=== PATIENT | female | born 1980 ===

== ENCOUNTER 2018-05-11 14:36 | Emergency (ER) | payer MEDICAID, OTHER ==
[2018-05-11 14:55] VITALS: TEMP 98.7
--- NOTE | 2018-05-11 15:39 | C.PDOC ---
History Of Present Illness 38yo female, history of PCP abuse, comes to ER for "insect evaluation." Patient states while injecting herself with heroin/crack cocaine, she missed her vein and while attempting to access the vein she saw "insects." Patient is concerned as she thinks the "insects live inside me" and she has noted the "insects" every time she has injected herself over the past week. She is requesting XR's and "tests" as she is concerned about her health and her children. Patient states her last use was yesterday. Patient has had a prior admission due to PCP abuse. Time Seen by Provider: 05/11/18 15:10 Chief Complaint (Nursing): Chest Pain History Per: Patient History/Exam Limitations: no limitations Past Medical History Reviewed: Historical Data, Nursing Documentation, Vital Signs Vital Signs: Last Vital Signs Temp 98.7 F 05/11/18 14:50 Pulse 95 H 05/11/18 14:50 Resp 16 05/11/18 14:50 BP 105/71 05/11/18 14:50 Pulse Ox 100 05/11/18 15:54 - Medical History PMH: Denies: Diabetes, Hepatitis, HIV, HTN, Seizures, [facility] [place] ASPIRAT CURET-POST DELIV (10/14/13) DETOXIFICATION SERVICES FOR SUBSTANCE ABUSE TREATMENT (01/11/16) PACKED CELL TRANSFUSION (10/14/13) Family History: States: Unknown Family Hx - Social History Hx Alcohol Use: No Hx Substance Use: Yes (heroin, cocaine) - Immunization History Hx Tetanus Toxoid Vaccination: No Hx Influenza Vaccination: No Hx Pneumococcal Vaccination: No Review Of Systems Except As Marked, All Systems Reviewed And Found Negative. Skin: Positive for: Other ("insects inside me") Physical Exam - Physical Exam Appears: Non-toxic (no aucte intoxication) Skin: Warm, Dry, Other (multiple old IV scars, consistent with IV drug abuse. No signs of infection noted.) Head: Normacephalic Eye(s): bilateral: Normal Inspection Neck: Normal ROM, Supple Chest: Symmetrical Cardiovascular: Rhythm Regular Respiratory: Normal Breath Sounds Extremity: Normal ROM Neurological/Psych: Oriented x3, Other (no acute psychosis) Additional Physical Exam Comments: Patient is uncooperative ED Course And Treatment - Laboratory Results Result Diagrams: 05/11/18 16:22 ECG: Interpreted By Me, Viewed By Me ECG Rhythm: Sinus Rhythm Rate From EC O2 Sat by Pulse Oximetry: 100 (RA) Pulse Ox Interpretation: Normal Reevaluation Time: 16:51 Reassessment Condition: Unchanged (PT NOTED TO BE OPENING DRAWERS AND DOORS IN ER ROOM AND STEALING SUPPLIES, PLAYING MUSIC LOUDLY.) - Physician Consult Information Time Consulting Physician Contacted: 16:15 Outcome Of Conversation: D/W CRISIS NO DETOX BEDS, WELL KNOWN TO PSYCH SERVICE. Medical Decision Making Medical Decision Making: Time: 1550 Case discussed with crisis team who states patient is well known to them from prior admissions for PCP abuse. Patient noted to have a prior AMA from a detox admission. Crisis team reports there are currently no detox beds available. Disposition Counseled Patient/Family Regarding: Studies Performed, Diagnosis, Need For Followup - Disposition Referrals: [facility] [Outside] [facility] [Outside] Disposition: HOME/ ROUTINE Disposition Time: 16:50 Condition: GOOD Forms: [facility] (Greenlandic) - Clinical Impression Clinical Impression: Substance-induced psychotic disorder, History of PCP abuse, Polysubstance abuse - Scribe Statement The provider has reviewed the documentation as recorded by the Alicia Fonseca Provider Attestation: All medical record entries made by the Brittanyibaron were at my direction and personally dictated by me. I have reviewed the chart and agree that the record accurately reflects my personal performance of the history, physical exam, medical decision making, and the department course for this patient. I have also personally directed, reviewed, and agree with the discharge instructions and disposition.
--- NOTE | 2018-05-11 15:41 | C.PDOC ---
History Of Present Illness 38yo female, history of PCP abuse, comes to ER for "insect evaluation." Patient states while injecting herself with heroin/crack cocaine, she missed her vein and while attempting to access the vein she saw "insects." Patient is concerned as she thinks the "insects live inside me" and she has noted the "insects" every time she has injected herself over the past week. She is requesting XR's and "tests" as she is concerned about her health and her children. Patient has had a prior admission due to PCP abuse. Time Seen by Provider: 05/11/18 15:10 Chief Complaint (Nursing): Chest Pain History Per: Patient Past Medical History Reviewed: Historical Data, Nursing Documentation, Vital Signs Vital Signs: Last Vital Signs Temp 98.7 F 05/11/18 14:50 Pulse 95 H 05/11/18 14:50 Resp 16 05/11/18 14:50 BP 105/71 05/11/18 14:50 Pulse Ox 100 05/11/18 14:50 - Medical History PMH: Denies: Diabetes, Hepatitis, HIV, HTN, Seizures, Sexually Transmitted Disease - [facility] Procedures ASPIRAT CURET-POST DELIV (10/14/13) DETOXIFICATION SERVICES FOR SUBSTANCE ABUSE TREATMENT (01/11/16) PACKED CELL TRANSFUSION (10/14/13) Family History: States: Unknown Family Hx - Social History Hx Alcohol Use: No Hx Substance Use: Yes (heroin, crack cocaine) - Immunization History Hx Tetanus Toxoid Vaccination: No Hx Influenza Vaccination: No Hx Pneumococcal Vaccination: No Review Of Systems Except As Marked, All Systems Reviewed And Found Negative. ED Course And Treatment O2 Sat by Pulse Oximetry: 100 Disposition - Disposition - Scribe Statement The provider has reviewed the documentation as recorded by the Alicia Fonseca Provider Attestation: All medical record entries made by the Brittanyibaron were at my direction and personally dictated by me. I have reviewed the chart and agree that the record accurately reflects my personal performance of the history, physical exam, medical decision making, and the department course for this patient. I have also personally directed, reviewed, and agree with the discharge instructions and disposition.
[2018-05-11 16:26] LABS: HEMOGLOBIN 12.8 g/dL (11.0-16.0); MEAN CELL VOLUME 88.2 fL (81.0-99.0); MEAN CORPUSCULAR HEMOGLOBIN 29.7 pg (27.0-31.0); MEAN CORPUSCULAR HGB CONC 33.7 g/dL (33.0-37.0); MEAN PLATELET VOLUME 7.9 fL (7.2-11.7); RBC 4.31 Mil/uL (3.80-5.20); WHITE BLOOD COUNT 5.7 K/uL (4.8-10.8)
[2018-05-11 17:02] VITALS: BP 127/73; PULSE 76; RESP 18; O2SAT 97
--- NOTE | 2018-05-12 15:30 | CARD ---
APPROVED REPORT Date of service: 05/11/2018 EKG Measurement Heart [id number] <Conclusion> Normal sinus rhythm Moderate voltage criteria for LVH, may be normal variant Borderline ECG
== END 2018-05-11 17:01 | disposition home or self-care (01) ==
LOC: C.ER 14:36
DX: F19.159 Other psychoactive substance abuse with psychoactive substance-induced psychotic disorder, unspecified (principal)

== ENCOUNTER 2018-09-22 17:05 | Inpatient (IN) | payer MEDICAID, OTHER ==
--- NOTE | 2018-09-22 19:53 | C.PDOC ---
History Of Present Illness 38 year old female presents to the ED complaining of left sided neck pain and swelling at the site where she injects her heroin for several weeks. Reports left sided headache that started at the same time period as the neck pain. Rep orts chills but denies any fevers. Denies any other systemic complaints. Time Seen by Provider: 09/22/18 18:03 Chief Complaint (Nursing): Abnormal Skin Integrity History Per: Patient History/Exam Limitations: no limitations Onset/Duration Of Symptoms: Days Location Of Injury: Left: Neck (pain and swelling ) Quality Of Symptoms: Painful, Swollen Past Medical History Reviewed: Historical Data, Nursing Documentation, Vital Signs Vital Signs: Last Vital Signs Temp 99.3 F 09/22/18 17:15 Pulse 104 H 09/22/18 17:15 Resp 18 09/22/18 17:15 BP 140/93 H 09/22/18 17:15 Pulse Ox 95 09/22/18 17:15 - Medical History PMH: Denies: Diabetes, Hepatitis, HIV, HTN, Seizures, Sexually Transmitted Disease Other PMH: Kidney infections Surgical History: No Surg Hx - [facility] Procedures ASPIRAT CURET-POST DELIV (10/14/13) DETOXIFICATION SERVICES FOR SUBSTANCE ABUSE TREATMENT (01/11/16) PACKED CELL TRANSFUSION (10/14/13) Family History: States: No Known Family Hx - Social History Hx Alcohol Use: No Hx Substance Use: Yes (heroin, cocaine) - Immunization History Hx Tetanus Toxoid Vaccination: No Hx Influenza Vaccination: No Hx Pneumococcal Vaccination: No Review Of Systems Except As Marked, All Systems Reviewed And Found Negative. Constitutional: Positive for: Chills. Negative for: Fever Musculoskeletal: Positive for: Neck Pain (left sided neck pain and swelling ) Physical Exam - Physical Exam Additional Physical Exam Comments: Gen: VS reviewed, alert, well developed, well nourished, nontoxic, mild distress Eye: EOMI, PERRL Neck: no JVD, supple, no adenopathy CV: regular rate, regular rhythm, no rubs,no murmur, S1, S2 Pulm: no distress, clear to auscultation, no wheeze, no rhonchi, breath sounds equal, no rales Abd: soft, nontender, no guarding, no rebound, no rigidity Ext: no edema Skin: area of fluctuance and swelling to left side of neck overlying track peña Psych: responds appropriately to questions, normal affect Neuro: oriented x3, CN2-12 intact grossly, motor intact, sensation intact ED Course And Treatment - Laboratory Results Result Diagrams: 09/22/18 20:40 09/22/18 20:40 O2 Sat by Pulse Oximetry: 95 (RA) Pulse Ox Interpretation: Normal - CT Scan/US head Other Rad Studies (CT/US): Read By Radiologist, Radiology Report Reviewed CT/US Interpretation: EXAM: CT Head without Intravenous Contrast. CLINICAL HISTORY: Left side headache. TECHNIQUE: Axial computed tomography images of the head/brain without intravenous contrast. 9787 Gy-cm. COMPARISON: None provided. FINDINGS: BRAIN. No acute intraparenchymal hemorrhage. No mass lesion. No CT evidence for acute territorial infarct. No midline shift or extra- axial collections. VENTRICLES: No hydrocephalus. ORBITS: The orbits are unremarkable. SINUSES AND MASTOIDS: The paranasal sinuses and mastoid air cells are clear. BONES: No fracture. SOFT TISSUES: Unremarkable. IMPRESSION: No acute intracranial abnormality. . Electronically signed on Sep 22, 2018 11:45:00 PM EST by: Ezequiel Baltazar M.D., TED Certified By ABR & CBCCT. Fellowship Trained MRI and CT Specialist. EXAM: CT Neck without Intravenous Contrast. CLINICAL HISTORY: Left side neck swelling. TECHNIQUE: Axial computed tomography images of the neck without intravenous contrast. Sagittal and coronal reformatted images were generated. 315 mGy-cm. CONTRAST: Without. COMPARISON: None provided. FINDINGS: There is a large left cerval fluid collection/swelling in the left cerval region of interest, 6 x 4 cm most compatible with an abscess. Consider short term follow up to document resolution. There is deviation of trachea and other midline structures to the right. PHARYNX: Unremarkable appearance of the nasopharynx, oropharyx, and hypopharynx. No pharyngeal mucosal based mass lesions. LARYNX: The larynx is unremarkable. The epiglottis appears normal. RETROPHARYNGEAL SPACE: No retropharyngeal soft tissue swelling or gas. SALIVARY GLANDS: Unremarkable appearance of the parotid, submandibular, and sublingual glands. LYMPH NODES: No significant lymphadenopathy. THYROID: Unremarkable appearance of the thyroid. No thyroid nodule seen. BONES: No aggressive appearing osseous lesion. No acute osseous abnormality. IMPRESSION: There is a large left cerval fluid collection/swelling in the left cerval region of interest, 6 x 4 cm most compatible with an abscess. Consider short term follow up to document resolution. . Electronically signed on Sep 23, 2018 12:32:40 AM EST by: Ezequiel Baltazar M.D., TED Certified By ABR & CBCCT. Fellowship Trained MRI and CT Specialist Medical Decision Making Medical Decision Making: admit accepted by dr. matthews. patient to be admitted for iv abx and surgical consult for neck soft tissue abscess. consult to dr. macedo. assistant professor surgical technology aware of consult. Disposition - Disposition Disposition: HOSPITALIZED Disposition Time: 01:09 Condition: STABLE Forms: [facility] (Bengali) - Clinical Impression Clinical Impression: Neck abscess - Scribe Statement The provider has reviewed the documentation as recorded by the Scribe Cindi Denton All medical record entries made by the Scribe were at my direction and personally dictated by me. I have reviewed the chart and agree that the record accurately reflects my personal performance of the history, physical exam, medical decision making, and the department course for this patient. I have also personally directed, reviewed, and agree with the discharge instructions and disposition.
[2018-09-22 20:42] LABS: VENOUS BLOOD GAS BASE EXCESS 9.2 mmol/L (0.0-2.0); VENOUS BLOOD GAS PCO2 62 mmHg (40-60); VENOUS BLOOD GAS PO2 28 mm/Hg (30-55); VENOUS BLOOD PH 7.38 (7.32-7.43)
[2018-09-22 20:44] LABS: BASO # 0.1 K/uL (0.0-0.2); BASO % 0.5 % (0.0-2.0); EOS # 0.1 K/uL (0.0-0.7); EOS % 0.7 % (0.0-4.0); HEMOGLOBIN 14.4 g/dL (11.0-16.0); LYMPH # 2.3 K/uL (1.0-4.3); LYMPH % 17.8 % (20.0-40.0); MEAN CELL VOLUME 88.3 fL (81.0-99.0); MEAN CORPUSCULAR HEMOGLOBIN 29.5 pg (27.0-31.0); MEAN CORPUSCULAR HGB CONC 33.4 g/dL (33.0-37.0); MONO # 1.2 K/uL (0.0-0.8); MONO % 9.4 % (0.0-10.0); NEUT # 9.2 K/uL (1.8-7.0); NEUT % 71.6 % (50.0-75.0); RBC 4.87 Mil/uL (3.80-5.20); RED CELL DISTRIBUTION WIDTH 13.3 % (11.5-14.5)
[2018-09-22 20:46] LABS: WHITE BLOOD COUNT 12.8 K/uL (4.8-10.8)
[2018-09-22 21:01] LABS: BLOOD UREA NITROGEN 11 mg/dL (7-17); CALCIUM 9.8 mg/dl (8.6-10.4); GFR NON-AFRICAN AMERICAN > 60
[2018-09-22] MEDS ORDERED: Iohexol 350mg/ml 100 ML ONE (21:15)
[2018-09-22] MEDS ORDERED: Iodixanol 320 MG/ML 100 ML BOTTLE IV ONE (23:51)
[2018-09-23] MEDS ORDERED: Vancomycin 500 mg Inj IVPB STA (00:42)
[2018-09-23] MEDS ORDERED: HYDROmorphone 1 mg/ml ISec IVP PRN (01:39)
[2018-09-23] MEDS ORDERED: Vancomycin 1 GM 1 GM/250 ML BAG IVPB ONE (01:44)
--- NOTE | 2018-09-23 01:44 | CP.PCM.CON ---
History of Present Illness - History of Present Illness History of Present Illness: General Surgery- Dr. Burns 38 yo F presenting with left sided neck swelling and pain x1week. Pt states that she is an IVDU and has injected heroin into her neck. Approximately 1 week ago she began to notice swelling developing over her left neck which gradually progressed into a larger firm mass on the side of her neck. She complains of pain from the site and radiating into the Left ear and also over to the Right side of her neck. She admits to associated subjective Fevers and Chills. She denies any Shortness of breathe/Nausea/vomiting/chest pains. PMH: denies PSH: denies All: Benadryl (hives) +IVDU heroin, +Tobacco Review of Systems - Review of Systems All systems: reviewed and no additional remarkable complaints except (as per HPI) Past Patient History - Past Social History Smoking Status: Heavy Smoker > 10 Cigarettes Daily - CARDIAC Hx Hypertension: No - PULMONARY Hx Tuberculosis: No - NEUROLOGICAL Hx Seizures: No - RENAL Hx Pyelonephritis: Yes (hx "kidney infections") Other/Comment: hx kidney stones - HEMATOLOGICAL/ONCOLOGICAL Hx Human Immunodeficiency Virus (HIV): No - GENITOURINARY/GYNECOLOGICAL Hx Sexually Transmitted Disorders: No - PSYCHIATRIC Hx Substance Use: Yes (heroin, cocaine) - SURGICAL HISTORY Hx Surgeries: No - ANESTHESIA Hx Anesthesia: Yes Hx Anesthesia Reactions: No Meds Allergies/Adverse Reactions: Allergies Allergy/AdvReac Type Severity Reaction Status Date / Time diphenhydramine HCl AdvReac Verified 09/22/18 17:18 [From Benadryl] - Medications Medications: Current Medications Hydromorphone HCl (Dilaudid) 1 mg IVP Q3H PRN PRN Reason: Pain, severe (8-10) Physical Exam - Constitutional Appears: No Acute Distress, Older Than Stated Age - Head Exam Head Exam: ATRAUMATIC, NORMAL INSPECTION, NORMOCEPHALIC - Eye Exam Eye Exam: Normal appearance - Neck Exam Additional comments: Left neck with approx [id number] area of induration with overyling track peña, mil d erythema, no appreciable fluctuance; no drainage - Respiratory Exam Respiratory Exam: NORMAL BREATHING PATTERN. absent: Respiratory Distress - Neurological Exam Neurological exam: Alert, Oriented x3 - Psychiatric Exam Psychiatric exam: Normal Affect, Normal Mood - Skin Skin Exam: Dry, Intact Results - Vital Signs Recent Vital Signs: Last Vital Signs Temp 99.3 F 09/22/18 17:15 Pulse 104 H 09/22/18 17:15 Resp 18 09/22/18 17:15 BP 140/93 H 09/22/18 17:15 Pulse Ox 95 09/23/18 01:10 - Labs Result Diagrams: 09/22/18 20:40 09/22/18 20:40 Labs: Laboratory Results - last 24 hr 09/22/18 09/22/18 09/22/18 20:35 20:40 20:40 WBC 12.8 H D RBC 4.87 Hgb 14.4 Hct 43.0 MCV 88.3 MCH 29.5 MCHC 33.4 RDW 13.3 Plt Count 420 H D MPV 8.0 Neut % (Auto) 71.6 Lymph % (Auto) 17.8 L [place] % (Auto) 9.4 Eos % (Auto) 0.7 Baso % (Auto) 0.5 Neut # (Auto) 9.2 H Lymph # (Auto) 2.3 [place] # (Auto) 1.2 H Eos # (Auto) 0.1 Baso # (Auto) 0.1 pO2 28 L VBG pH 7.38 VBG pCO2 62 H VBG HCO3 30.8 VBG Total CO2 38.6 H VBG O2 Sat (Calc) 60.4 VBG Base Excess 9.2 H VBG Potassium 5.1 Sodium 140.0 140 Chloride 102.0 97 L Glucose 145 H Lactate 1.5 FiO2 21.0 Potassium 4.7 Carbon Dioxide 33 H Anion Gap 15 BUN 11 Creatinine 0.5 L Est GFR ( Amer) > 60 Est GFR (Non-Af Amer) > 60 Random Glucose 156 H Calcium 9.8 Venous Blood Potassium 5.1 Assessment & Plan - Assessment and Plan (Free Text) Assessment: 38 yo F IVDU with Left neck abscess -Continue IV Abx -Pain control prn -Will do Bedside I&D this AM DW Dr. Grant Carrillo PGY4
[2018-09-23] MEDS: Sodium Chloride 0.9% 1,000 ML IV SCH ×2 (03:01→13:00)
[2018-09-23] MEDS ORDERED: Lidocaine 2% w Epi 1:100,000 Inj IJ ONE (07:42)
--- NOTE | 2018-09-23 09:42 | PCM.SURG1 ---
Surgeon's Initial Post Op Note - Surgeon's Notes Surgeon: Dr. Burns Care Director Rn: Dr. Gallegos PGY4; Dr. Vance PGY2 Type of Anesthesia: Local Anesthesia Administered By: Dr. Vance PGY2 Pre-Operative Diagnosis: Left neck abscess Operative Findings: Written consent obtained. Patient placed in the supine position. Betadine was used to prep the skin and the area was draped in the usual sterile fashion. Approximately 4cc of 2% Lidocaine w epi was used for local anesthesia. A 19g needle was used to aspirate the indurated area for an abscess cavity. Wound culture was sent. A #11 blade was used to make a skin incision. The cavity was probed to ensure all loculations were disrupted. 1/4in iodoform gauze packing was placed. Hemostasis noted. Dry sterile dressing placed. Patient tolerated procedure well. Post-Operative Diagnosis: same Operation Performed: Left Neck Abscess Incision and Drainage Specimen/Specimens Removed: Wound Culture Estimated Blood Loss: EBL {In ML}: 2 Blood Products Given: N/A Drains Used: No Drains Post-Op Condition: Good Date of Surgery/Procedure: 09/23/18 Time of Surgery/Procedure: 09:49
--- NOTE | 2018-09-23 09:43 | CT ---
Date of service: 09/22/2018 PROCEDURE: CT HEAD WITHOUT CONTRAST. HISTORY: Left sided headache COMPARISON: Comparison made with prior CT scan neck which partially image the skull base 12/16/2015 TECHNIQUE: Axial computed tomography images were obtained through the head/brain without intravenous contrast. Radiation dose: Total exam DLP = 977.74 mGy-cm. This CT exam was performed using one or more of the following dose reduction techniques: Automated exposure control, adjustment of the mA and/or kV according to patient size, and/or use of iterative reconstruction technique. FINDINGS: HEMORRHAGE: No intracranial hemorrhage. BRAIN: No mass effect or edema. No atrophy or chronic microvascular ischemic changes. VENTRICLES: Unremarkable. No hydrocephalus. CALVARIUM: Unremarkable. PARANASAL SINUSES: Unremarkable as visualized. No significant inflammatory changes. MASTOID AIR CELLS: Unremarkable as visualized. No inflammatory changes. OTHER FINDINGS: None. IMPRESSION: Normal CT of the Head.
[2018-09-23] MEDS ORDERED: Oxycodone/Acetaminophen 5/325 mg Tab PO PRN (12:25)
[2018-09-23] MEDS ORDERED: Amoxicillin-Clav 875-125 mg Tab PO SCH ×2 (12:30→13:00)
[2018-09-23] MEDS: Piperacill/Tazo 3.375gm in Dex 3.375 GM/50 ML BAG IVPB SCH ×2 (13:01→18:24)
--- NOTE | 2018-09-23 14:21 | CT ---
Date of service: 09/22/2018 PROCEDURE: CT NECK WITHOUT CONTRAST HISTORY: Left-sided neck swelling, ?abscess COMPARISON: None available. TECHNIQUE: CT of the neck without intravenous contrast. Coronal and sagittal reformats generated. Radiation dose: Total exam DLP = 315.21 mGy-cm. This CT exam was performed using one or more of the following dose reduction techniques: Automated exposure control, adjustment of the mA and/or kV according to patient size, and/or use of iterative reconstruction technique. FINDINGS: Study is limited due to the lack of circulating intravenous contrast material. There is a very large area of soft tissue swelling - edema left aspect of the neck subjacent to a skin surface BB marker placed over the area of perceived swelling. The fat/fascial planes and subjacent musculature are poorly delineated and findings probably represent a large area of cellulitis/phlegmon formation. No definitive fluid collections are seen at this time. These inflammatory changes extend from just above the level of the left clavicle superiorly to the angle of the mandible. The changes result in compressive effects on the thyroid cartilage and trachea which are shifted to the right. Questionable swelling of the left aspect of the epiglottis and left aryepiglottic fold. There compression of the left pyriform sinus. There is also compressive effects on the left lobe of the thyroid gland. Thyroid gland is heterogeneous in appearance likely due to crossing streak and beam hardening artifact from overlying monitor wires as well as dense clavicles and shoulder girdles. Follow-up thyroid ultrasound could be performed for further evaluation. The cervical vasculature is poorly delineated due to the lack of circulating intravenous contrast material. Evaluation for adenopathy is also quite limited due to significant edema/swelling with compression- displacement of normal anatomic structures in the left aspect of the neck. Mild reversal of the normal cervical lordosis centered at the C4-C5 level with straightening of the cervical spine above this level. Mild multilevel degenerative spondylosis. There also appears to be small bleb changes seen in the right lung apex with mild biapical pleural thickening and parenchymal scarring IMPRESSION: There is a large amorphous area of soft tissue swelling left aspect of the neck likely representing cellulitis/phlegmon formation with surrounding mass effect most important the of which includes questionable swelling of the left epiglottis and left aryepiglottic fold. No definitive discrete abscess is identified at this time. Note that this report was placed in in [place] review folder for follow up.
[2018-09-23] MEDS ORDERED: Vancomycin 1 gm/NS 200 ml 1 GM/200 ML BAG IVPB SCH (18:30)
[2018-09-23] MEDS: Saccharomyces Boulardi 250 mg Cap PO SCH (18:50)
--- NOTE | 2018-09-23 20:55 | CP.PCM.HP ---
<Duane Yanes - Last Filed: 09/23/18 21:42> History of Present Illness - History of Present Illness History of Present Illness: PGY-1 H&P note for Dr Trent service cc: neck abscess, s/p I&D Patient is a 38 year old female with past medical history of IV drug use and hepatitis C, is seen in hospital floor room, patient was originally admitted under Dr Segura, however due to patient's insurance not activated, patient has been transferred to hospitalist service. Patient was admitted on 09/22 for left side neck pain that started about 2 weeks ago when patient injected heroin into her left neck area. Patient has been injecting heroin in the neck since April of this year, and has used upper and lower extremities to inject heroin in the past. Patient stated that pain in the area got worst and originally had an open wound that started to close up. Patient admits to have been squeezing the affected area to remove purulent discharge out. Patient admits to have taken unknown PO antibiotic previously and putting Vics Vaporub ointment in affected area, with no relief. Patient was seen by surgical team, who performed a bedside I&D on the morning of 09/23 and wound culture was collected and sent to lab. Patient is now pod #0. Currently patient complains of pain in the incision area and in her whole body, but denies fever, chills, chest pain, shortness of breath, abdominal pain, n/v/d/c, urinary problem, headache, dizziness or other symptoms. PMhx: IV drug use (heroin), hepatitis C Shx: denies All: Benadryl (hives, tingling in tongue) Meds: none Fmhx: denies Sochx: 5 cigarettes/day for past two years. no alcohol use. IV heroin ( 4 [place] bags/day since last year). Patient does not work currently. Present on Admission - Present on Admission Any Indicators Present on Admission: No Review of Systems - Review of Systems All systems: reviewed and no additional remarkable complaints except Review of Systems: as stated in HPI Past Patient History - Past Medical History & Family History Past Medical History?: Yes - Past Social History Smoking Status: Heavy Smoker > 10 Cigarettes Daily - CARDIAC Hx Hypertension: No - PULMONARY Hx Tuberculosis: No - NEUROLOGICAL Hx Seizures: No - RENAL Hx Pyelonephritis: Yes (hx "kidney infections") Other/Comment: hx kidney stones - ENDOCRINE/METABOLIC Hx Endocrine Disorders: No - HEMATOLOGICAL/ONCOLOGICAL Hx Human Immunodeficiency Virus (HIV): No - INTEGUMENTARY Hx Dermatological Problems: No - MUSCULOSKELETAL/RHEUMATOLOGICAL Hx Musculoskeletal Disorders: No Hx Falls: No - GASTROINTESTINAL Hx Gastrointestinal Disorders: No - GENITOURINARY/GYNECOLOGICAL Hx Sexually Transmitted Disorders: No - PSYCHIATRIC Hx Substance Use: Yes (heroin, cocaine) - SURGICAL HISTORY Hx Surgeries: No - ANESTHESIA Hx Anesthesia: Yes Hx Anesthesia Reactions: No Meds Allergies/Adverse Reactions: Allergies Allergy/AdvReac Type Severity Reaction Status Date / Time diphenhydramine HCl AdvReac Verified 09/22/18 17:18 [From Benadryl] Physical Exam - Constitutional Appears: Non-toxic, No Acute Distress, Unkempt, Cachectic - Head Exam Head Exam: ATRAUMATIC, NORMAL INSPECTION, NORMOCEPHALIC - Eye Exam Eye Exam: EOMI, Normal appearance. absent: Conjunctival injection, Scleral icterus Pupil Exam: NORMAL ACCOMODATION, PERRL Additional comments: echymosis noted on right upper eyelid area, no abrasions, no bloody or purulent discharge - ENT Exam ENT Exam: Mucous Membranes Moist, Normal Exam, Normal Oropharynx - Neck Exam Neck exam: Positive for: Tenderness. Negative for: Lymphadenopathy Additional comments: dressing placed on left side of anterior neck area, dressing c/d/i - Respiratory Exam Respiratory Exam: Clear to Auscultation Bilateral, NORMAL BREATHING PATTERN. absent: Rales, Rhonchi, Wheezes - Cardiovascular Exam Cardiovascular Exam: REGULAR RHYTHM, +S1, +S2. absent: Tachycardia, Systolic Murmur - GI/Abdominal Exam GI & Abdominal Exam: Hyperactive Bowel Sounds, Soft. absent: Distended, Guarding, Rigid, Tenderness - Extremities Exam Extremities exam: Positive for: full ROM. Negative for: calf tenderness, pedal edema, tenderness Additional comments: multiple healed punctures on dorsal aspect bilateral hands and forearm, as well as dorsal aspect of feet questionable venous engorgement on right anterior aspect of arm, no erythema seen - Neurological Exam Neurological exam: Alert Additional comments: AAOx2 - Psychiatric Exam Psychiatric exam: Flat Affect - Skin Skin Exam: Dry, Intact, Normal Color Additional comments: tattoos on abdominal skin area Results - Vital Signs Recent Vital Signs: Last Vital Signs Temp 98.1 F 12/18 15:54 Pulse 69 09/23/18 15:54 Resp 20 09/23/18 15:54 BP 101/70 09/23/18 15:54 Pulse Ox 96 09/23/18 15:54 - Labs Result Diagrams: 09/22/18 20:40 09/22/18 20:40 Labs: Laboratory Results - last 24 hr 09/22/18 09/22/18 09/22/18 20:35 20:40 20:40 WBC 12.8 H D RBC 4.87 Hgb 14.4 Hct 43.0 MCV 88.3 MCH 29.5 MCHC 33.4 RDW 13.3 Plt Count 420 H D MPV 8.0 Neut % (Auto) 71.6 Lymph % (Auto) 17.8 L [place] % (Auto) 9.4 Eos % (Auto) 0.7 Baso % (Auto) 0.5 Neut # (Auto) 9.2 H Lymph # (Auto) 2.3 [place] # (Auto) 1.2 H Eos # (Auto) 0.1 Baso # (Auto) 0.1 pO2 28 L VBG pH 7.38 VBG pCO2 62 H VBG HCO3 30.8 VBG Total CO2 38.6 H VBG O2 Sat (Calc) 60.4 VBG Base Excess 9.2 H VBG Potassium 5.1 Sodium 140.0 140 Chloride 102.0 97 L Glucose 145 H Lactate 1.5 FiO2 21.0 Potassium 4.7 Carbon Dioxide 33 H Anion Gap 15 BUN 11 Creatinine 0.5 L Est GFR ( Amer) > 60 Est GFR (Non-Af Amer) > 60 Random Glucose 156 H Calcium 9.8 Venous Blood Potassium 5.1 Assessment & Plan - Assessment and Plan (Free Text) Assessment: Patient is a 38 year old female with pmhx of IV drug abuse admitted for left sided neck pain/abscess, I&D performed 09/23, currently on PO abx, awaiting Midline for better access to continue abx administration. Plan: left neck abscess, s/p bedside I&D, pod #0 - Surgery consult - Dr Burns - left neck Bedside I&D performed 09/23/2018 -wound culture collected and sent to lab - preliminary result show no organism, no WBC -1/4in iodoform gauze packing was placed. Hemostasis noted. Dry sterile dressing placed. Patient tolerated procedure well. - will follow surgery recommendations - will follow blood cultures/final wound cx results - will follow am labs (CMP, CBC w diff, Mg, Phos) - abx - patient has poor venous access - Previous abx given - Vanco x1 dose, Augmentin Q12 PO, Zosyn Q6hr IVPB - start Clindamycin 300mg PO TID - PO abx until patient obtains IV abscess - Midline ordered - to be done tomorrow 09/24/2018 - Tylenol PRN for fever and pain - D/c dilaudid and percocet medication due to pt history of heroin abuse IV drug use/heroin use - hx of hepatitis C infections - HEpatitis panel - f/u - patient denies any needle sharing - r/o HIV - HIV antibody 1 an 2 - Drug panel 9, serum- follow up, hx of PCP use, patient denies using PCP recently - Psych consult - Dr Carmen - help is appreciated to treat patient for heroin withdrawal - meds: -Ativan 1mg PO Q8h PRN for agitation -Atarax 25mg PO Q8h PRN for anxiety -Colace 100mg PO BID for constipation - D/c dilaudid and percocet medication due to pt history of heroin abuse hx of muitliple needle injections, r/o Thrombophlebitis - Venous doppler B/l UE - f/u abrasion b/l feet - Mupirocin ointment TOP Qdaily tobacco use disorder - Nicotine patch 14mg/24 hr TD Qdaily Hx of hepatitis C - Hepatitis Panel - f/u - complete Abdominal U/S - f/u Prophylaxis - Florastor 250mg PO BID - zofran ODT PO Q8hrs PRN for nausea/vomiting - DVT prophylaxis - SCDs, encourage ambulation - no GI prophylaxis indicated at this time - Regular diet - Encourage PO water intake as patient does not have IV access for fluids at this time - please note: Patient transferred to our service from Dr Segura service on 09/23/2018 at 17:25 due to patient's insurance not currently activated, patient is currently uninsured and will now be under hospitalist service. Plan discussed with Dr Twan Yanes, PGY-1 - Date & Time Date: 09/23/18 Time: 18:00 <Dolores Trent V - Last Filed: 09/24/18 15:50> Results - Vital Signs Recent Vital Signs: Last Vital Signs Temp 97.2 F L 09/24/18 07:50 Pulse 72 09/24/18 07:50 Resp 20 09/24/18 07:50 BP 106/67 09/24/18 07:50 Pulse Ox 97 09/24/18 07:50 - Labs Result Diagrams: 09/24/18 07:14 09/24/18 07:14 Labs: Laboratory Results - last 24 hr 09/24/18 09/24/18 09/24/18 07:14 07:14 07:14 WBC 5.1 D RBC 3.85 Hgb 11.6 D Hct 34.4 MCV 89.3 MCH 30.0 MCHC 33.6 RDW 13.4 Plt Count 338 MPV 8.0 Neut % (Auto) 43.4 L Lymph % (Auto) 43.5 H [place] % (Auto) 9.4 Eos % (Auto) 2.9 Baso % (Auto) 0.8 Neut # (Auto) 2.2 Lymph # (Auto) 2.2 [place] # (Auto) 0.5 Eos # (Auto) 0.1 Baso # (Auto) 0.0 Sodium 140 Potassium 3.9 Chloride 102 Carbon Dioxide 32 H Anion Gap 10 BUN 12 Creatinine 0.5 L Est GFR ( Amer) > 60 Est GFR (Non-Af Amer) > 60 Random Glucose 107 H D Calcium 9.1 Phosphorus 3.7 Magnesium 2.1 Total Bilirubin 0.7 AST 21 ALT 12 Alkaline Phosphatase 83 Total Protein 7.4 Albumin 3.6 Globulin 3.8 Albumin/Globulin Ratio 0.9 L Hepatitis A IgM Ab Negative Hep Bs Antigen Negative Hep B Core IgM Ab Negative Hepatitis C Antibody Reactive HIV 1&2 Antibody Screen 09/24/18 07:14 WBC RBC Hgb Hct MCV MCH MCHC RDW Plt Count MPV Neut % (Auto) Lymph % (Auto) [place] % (Auto) Eos % (Auto) Baso % (Auto) Neut # (Auto) Lymph # (Auto) [place] # (Auto) Eos # (Auto) Baso # (Auto) Sodium Potassium Chloride Carbon Dioxide Anion Gap BUN Creatinine Est GFR ( Amer) Est GFR (Non-Af Amer) Random Glucose Calcium Phosphorus Magnesium Total Bilirubin AST ALT Alkaline Phosphatase Total Protein Albumin Globulin Albumin/Globulin Ratio Hepatitis A IgM Ab Hep Bs Antigen Hep B Core IgM Ab Hepatitis C Antibody HIV 1&2 Antibody Screen Negative Attending/Attestation - Attestation I have personally seen and examined this patient.: Yes I have fully participated in the care of the patient.: Yes I have reviewed all pertinent clinical information: Yes Notes (Text): This is late computer entry for 09/23/18. Patient seen, examined and case discussed with day-time resident. Patient transferred to the hospitalist service at 09/23/18 at 525PM. Hospitalist service will resume care since this time. Patient is a 38 year old female with pmhx of IV drug abuse for heroin, admits to at least 4 [employer] daily. She reports she injects in her arms and recently per the advice of her friend, starting to inject in her neck. We did strongly counselled her on the dangerous actions of her actions including risk for meningitis, encephalitis, bleeding, seeding infection based on her method of drug use alone. Patient reports prior to hospitalization, the area was draining and she would press it out. Patient was seen and evaluated by the surgery team, underwent a bedside I&D, I spoke with the surgery resident Rajiv, the area was very indurated and there was not much to drain. They have sent out culture. Patient does not have peripheral IV access giving her scarring secondary to her IV drug use. Patient admits she has a history of hepatitis C, she reports she goes to [facility], she is aware of the consequence if she shares needles and that she pose risk to others for hepatitis C. She was counselled extensively at bedside regarding safe sex practices in light of her diagnosis and reports she has not sought out treatment for Hepatitis C. I have discontinued narcotic medications placed by other providers in light of her narcotic use. We will seek the opinion of addiction medicine specialist given she will go through heroin withdrawal but she admits "she will not from it". Patient encouraged PO hydration. patient has had a prior hx of PCP use but denies current use. Patient started on Clindamycin 300mg PO TID to cover until wound culture comes back. Assessment/plan 1. Left neck abscess, s/p bedside I&D, pod #0 Assessment/Plan * Surgery consult - Dr Burns - left neck Bedside I&D performed 09/23/2018 * Preoperative/intraoperative/post operative management per surgery * wound culture collected and sent to lab - preliminary result show no organism, no WBC * 1/4in iodoform gauze packing was placed. Hemostasis noted. Dry sterile dressing placed. Patient tolerated procedure well * per surgery, permit anticoagulation post surgery * Antibiotics: * Previous abx given - Vanco x1 dose, Augmentin Q12 PO, Zosyn Q6hr IVPB * start Clindamycin 300mg PO TID - PO abx until patient obtains IV abscess * Midline ordered - to be done tomorrow 09/24/2018 * Tylenol 650mg PO Q6H PRN for fever and pain * D/c dilaudid and percocet medication due to pt history of heroin abuse 2. IV drug use/heroin use Assessment/Plan * patient denies any needle sharing - r/o HIV - HIV antibody 1 an 2 * Drug panel 9, serum- follow up, hx of PCP use, patient denies using PCP recently * Psych consult - Dr Carmen - help is appreciated to treat patient for heroin withdrawal * Methadone taper * Ativan 1mg PO Q8h PRN for agitation * Atarax 25mg PO Q8h PRN for anxiety * Colace 100mg PO BID for constipation * D/c dilaudid and percocet medication due to pt history of heroin abuse 3. Hx of muitliple needle injections * Venous doppler B/l UE - f/u * Concern for superficial thrombophlebitis 4. Abrasions located over b/l feet * Mupirocin ointment TOP Qdaily * they are flat, nondraining 5. Tobacco use disorder * Nicotine patch 14mg/24 hr TD Qdaily * Counselled smoking cessation at bedside 6. Hx of hepatitis C * Hepatitis Panel - f/u * complete Abdominal U/S - f/u * Patient has not sought out treatment; advised strongly that she should followup outpatient and see what further testing she needs for treatment 7. Prophylaxis * Florastor 250mg PO BID * zofran ODT PO Q8hrs PRN for nausea/vomiting * DVT prophylaxis - SCDs, encourage ambulation * no GI prophylaxis indicated at this time * Regular diet * Encourage PO water intake as patient does not have IV access for fluids at this time
[2018-09-24 07:19] LABS: BASO % 0.8 % (0.0-2.0); EOS # 0.1 K/uL (0.0-0.7); EOS % 2.9 % (0.0-4.0); LYMPH # 2.2 K/uL (1.0-4.3); LYMPH % 43.5 % (20.0-40.0); MEAN CELL VOLUME 89.3 fL (81.0-99.0); MEAN CORPUSCULAR HGB CONC 33.6 g/dL (33.0-37.0); MONO # 0.5 K/uL (0.0-0.8); MONO % 9.4 % (0.0-10.0); NEUT # 2.2 K/uL (1.8-7.0); NEUT % 43.4 % (50.0-75.0); RBC 3.85 Mil/uL (3.80-5.20); RED CELL DISTRIBUTION WIDTH 13.4 % (11.5-14.5)
[2018-09-24 07:25] LABS: HEMOGLOBIN 11.6 g/dL (11.0-16.0); WHITE BLOOD COUNT 5.1 K/uL (4.8-10.8)
[2018-09-24 08:14] LABS: ALB/GLOB RATIO 0.9 (1.0-2.1); ALBUMIN 3.6 g/dL (3.5-5.0); ALT/SGPT 12 U/L (9-52); AST/SGOT 21 U/L (14-36); BLOOD UREA NITROGEN 12 mg/dL (7-17); CALCIUM 9.1 mg/dl (8.6-10.4); GFR NON-AFRICAN AMERICAN > 60
--- NOTE | 2018-09-24 08:23 | CP.PCM.PN ---
Subjective - Date & Time of Evaluation Date of Evaluation: 09/24/18 Time of Evaluation: 06:40 - Subjective Subjective: General Surgery Pt seen and examined. Pt only complains of pain. Received tylenol and one dose of toradol overnight. Swelling has improved. Dressing changed and packing removed. Objective - Vital Signs/Intake and Output Vital Signs (last 24 hours): Temp Pulse Resp BP Pulse Ox 97.2 F L 72 20 106/67 97 09/24/18 07:50 09/24/18 07:50 09/24/18 07:50 09/24/18 07:50 09/24/18 07:50 Intake and Output: 09/24/18 09/24/18 06:59 18:59 Intake Total 570 Balance 570 - Medications Medications: Current Medications Acetaminophen (Tylenol 325mg Tab) 650 mg PO Q6 PRN PRN Reason: Pain, severe (8-10) Clindamycin HCl (Cleocin) 300 mg PO TID [facility]; Protocol Last Admin: 09/23/18 21:07 Dose: 300 mg Docusate Sodium (Colace) 100 mg PO BID [facility] Last Admin: 09/23/18 21:08 Dose: 100 mg Hydroxyzine HCl (Atarax) 25 mg PO Q8H PRN PRN Reason: Anxiety Sodium Chloride (Sodium Chloride 0.9%) 1,000 mls @ 100 mls/hr IV .Q10H [facility] Last Admin: 09/23/18 13:00 Dose: Not Given Ketorolac Tromethamine (Toradol) 30 mg IM Q6 PRN PRN Reason: Pain, moderate (4-7) Lorazepam (Ativan) 1 mg PO TID PRN PRN Reason: Agitation Methadone HCl (Methadone) 20 mg PO ONCE ONE Stop: 09/24/18 10:01 Mupirocin (Bactroban Ointment) 0 gm TOP DAILY [facility] Nicotine (Nicoderm Cq) 1 patch TD Q24H [facility] Last Admin: 09/23/18 21:10 Dose: 1 patch Ondansetron HCl (Zofran Odt) 4 mg PO Q8H PRN PRN Reason: Nausea/Vomiting Saccharomyces Boulardii (Florastor) 250 mg PO BID [facility] Last Admin: 09/23/18 18:50 Dose: 250 mg - Labs Labs: 09/24/18 07:14 09/24/18 07:14 - Constitutional Appears: Non-toxic, No Acute Distress - Head Exam Head Exam: ATRAUMATIC, NORMOCEPHALIC - Eye Exam Eye Exam: EOMI. absent: Scleral icterus - Neck Exam Neck Exam: Tenderness (of indurated area) Additional comments: Left neck with approx 8x8cm area of induration centered around cruciate incision, mild erythema, no new fluctuance; no drainage Trachea midline - Respiratory Exam Respiratory Exam: NORMAL BREATHING PATTERN. absent: Respiratory Distress - GI/Abdominal Exam GI & Abdominal Exam: Soft. absent: Distended, Tenderness - Neurological Exam Neurological Exam: Alert, Awake, Oriented x3 - Skin Skin Exam: Dry, Warm Assessment and Plan - Assessment and Plan (Free Text) Assessment: 38F IVDU with Left neck abscess s/p Incision and drainage POD#1/ Plan: Continue PO abx F/U wound cx No need for IV abx at this time as the wound is improving. Would not recommend PICC in a patient with IV drug abuse problems D/W Dr. Grant Gallegos PGY4
[2018-09-24 08:32] LABS: HEPATITIS B SURFACE AG Negative (NEGATIVE)
[2018-09-24 08:38] LABS: HEPATITIS A IGM NEGATIVE (NEGATIVE); HEPATITIS B CORE AB NEGATIVE (NEGATIVE)
[2018-09-24] MEDS: Saccharomyces Boulardi 250 mg Cap PO SCH ×2 (09:10→17:11)
--- NOTE | 2018-09-24 10:05 | CP.PCM.PN ---
<Dolores Trent V - Last Filed: 09/24/18 15:51> Objective - Vital Signs/Intake and Output Vital Signs (last 24 hours): Temp Pulse Resp BP Pulse Ox 97.2 F L 72 20 106/67 97 09/24/18 07:50 09/24/18 07:50 09/24/18 07:50 09/24/18 07:50 09/24/18 07:50 Intake and Output: 09/24/18 09/24/18 06:59 18:59 Intake Total 570 40 Balance 570 40 - Medications Medications: Current Medications Acetaminophen (Tylenol 325mg Tab) 650 mg PO Q6 PRN PRN Reason: Pain, severe (8-10) Clindamycin HCl (Cleocin) 300 mg PO TID [facility]; Protocol Last Admin: 09/24/18 15:04 Dose: 300 mg Docusate Sodium (Colace) 100 mg PO BID [facility] Last Admin: 09/24/18 09:10 Dose: 100 mg Hydroxyzine HCl (Atarax) 25 mg PO Q8H PRN PRN Reason: Anxiety Sodium Chloride (Sodium Chloride 0.9%) 1,000 mls @ 100 mls/hr IV .Q10H [facility] Last Admin: 09/24/18 15:27 Dose: Not Given Influenza Virus Vaccine (Fluzone Quad [id number]) 60 mcg IM .ONCE ONE Stop: 09/26/18 10:01 Ketorolac Tromethamine (Toradol) 30 mg IM Q6 PRN PRN Reason: Pain, moderate (4-7) Lorazepam (Ativan) 1 mg PO TID PRN PRN Reason: Agitation Methadone HCl (Methadone) 20 mg PO Q24H [facility]; Taper Stop: 09/28/18 09:59 Last Admin: 09/24/18 09:10 Dose: 20 mg Mupirocin (Bactroban Ointment) 0 gm TOP DAILY [facility] Last Admin: 09/24/18 12:21 Dose: Not Given Nicotine (Nicoderm Cq) 1 patch TD Q24H [facility] Last Admin: 09/23/18 21:10 Dose: 1 patch Ondansetron HCl (Zofran Odt) 4 mg PO Q8H PRN PRN Reason: Nausea/Vomiting Pneumococcal Polyvalent Vaccine (Pneumovax 23 Vaccine) 0.5 ml IM .ONCE ONE Stop: 09/26/18 10:01 Saccharomyces Boulardii (Florastor) 250 mg PO BID [facility] Last Admin: 09/24/18 09:10 Dose: 250 mg - Labs Labs: 09/24/18 07:14 09/24/18 07:14 Attending/Attestation - Attestation I have personally seen and examined this patient.: Yes I have fully participated in the care of the patient.: Yes I have reviewed all pertinent clinical information, including history, physical exam and plan: Yes Notes (Text): Patient seen, examined and case discussed with medical associate. Patient seen this morning. Patient appears clinically better hydrated. Afebrile. White count has resolved. Surgery site appears to be improving, less swollen, dressing has changed. Patient is pending venous dopplers. Given patient's IV drug history status, cancelled for midline/picc line for the patient. per discussion with surgery team, patient does have significant other who does use as well. She has been strongly cautioned AGAIN but the adverse actions associated with IV drug use. I spoke with psychiatry, patient to start methadone taper to help her through withdrawal symptoms. F/u infectious disease for best PO option for patient given she is not a candidate for IV antibiotics. Patient is pending abdominal US, in light of hepatitis C hx Assessment/plan 1. Left neck abscess, s/p bedside I&D, pod #1 Assessment/Plan * Surgery consult - Dr Burns - left neck Bedside I&D performed 09/23/2018 * Preoperative/intraoperative/post operative management per surgery * wound culture collected and sent to lab - preliminary result show no organism, no WBC * 1/4in iodoform gauze packing was placed. Hemostasis noted. Dry sterile dressing placed. Patient tolerated procedure well * per surgery, permit anticoagulation post surgery * Antibiotics: * Previous abx given - Vanco x1 dose, Augmentin Q12 PO, Zosyn Q6hr IVPB * c/w Clindamycin 300mg PO TID - PO abx * Infectious disease consult (Dr. Delgado) on consult help appreciated * * Tylenol 650mg PO Q6H PRN for fever and pain * D/c dilaudid and percocet medication due to pt history of heroin abuse 2. IV drug use/heroin use Assessment/Plan * patient denies any needle sharing - r/o HIV - HIV antibody 1 an 2 * Drug panel 9, serum- follow up, hx of PCP use, patient denies using PCP recently * Psych consult - Dr Carmen - help is appreciated to treat patient for heroin withdrawal * Methadone taper * Ativan 1mg PO Q8h PRN for agitation * Atarax 25mg PO Q8h PRN for anxiety * Colace 100mg PO BID for constipation * D/c dilaudid and percocet medication due to pt history of heroin abuse * patient may require inpatient detox when she is cleared from surgery standpoint for discharge 3. Hx of muitliple needle injections * Venous doppler B/l UE - f/u * Concern for superficial thrombophlebitis 4. Abrasions located over b/l feet * Mupirocin ointment TOP Qdaily * they are flat, nondraining 5. Tobacco use disorder * Nicotine patch 14mg/24 hr TD Qdaily * Counselled smoking cessation at bedside 6. Hx of hepatitis C * Hepatitis Panel - f/u * complete Abdominal U/S - f/u * Patient has not sought out treatment; advised strongly that she should followup outpatient and see what further testing she needs for treatment 7. Prophylaxis * Florastor 250mg PO BID * zofran ODT PO Q8hrs PRN for nausea/vomiting * DVT prophylaxis - SCDs, encourage ambulation * no GI prophylaxis indicated at this time * Regular diet * Encourage PO water intake as patient does not have IV access for fluids at this time <Duane Yanes - Last Filed: 09/24/18 18:17> Subjective - Date & Time of Evaluation Date of Evaluation: 09/24/18 Time of Evaluation: 17:36 - Subjective Subjective: PGY-[address] Trent service Patient is seen and examined at bedside. Patient states not feeling well due to experiencing withdrawal from heroin. Patient admits to Nausea, dizziness, generalized body pain. Patient states her left neck area feels better, reports less swelling and less pain in the area. Patient has been scratching on another injection site on her right neck area. Patient denies fever, chills, chest pain, shortness of breath, abdominal pain, diarrhea, constipation, or vomiting. Objective - Vital Signs/Intake and Output Vital Signs (last 24 hours): Temp Pulse Resp BP Pulse Ox 97.2 F L 72 20 106/67 97 09/24/18 07:50 09/24/18 07:50 09/24/18 07:50 09/24/18 07:50 09/24/18 07:50 Intake and Output: 09/24/18 09/24/18 06:59 18:59 Intake Total 570 Balance 570 - Medications Medications: Current Medications Acetaminophen (Tylenol 325mg Tab) 650 mg PO Q6 PRN PRN Reason: Pain, severe (8-10) Clindamycin HCl (Cleocin) 300 mg PO TID [facility]; Protocol Last Admin: 09/24/18 09:10 Dose: 300 mg Docusate Sodium (Colace) 100 mg PO BID [facility] Last Admin: 09/24/18 09:10 Dose: 100 mg Hydroxyzine HCl (Atarax) 25 mg PO Q8H PRN PRN Reason: Anxiety Sodium Chloride (Sodium Chloride 0.9%) 1,000 mls @ 100 mls/hr IV .Q10H [facility] Last Admin: 09/23/18 13:00 Dose: Not Given Ketorolac Tromethamine (Toradol) 30 mg IM Q6 PRN PRN Reason: Pain, moderate (4-7) Lorazepam (Ativan) 1 mg PO TID PRN PRN Reason: Agitation Methadone HCl (Methadone) 20 mg PO Q24H [facility]; Taper Stop: 09/28/18 09:59 Last Admin: 09/24/18 09:10 Dose: 20 mg Mupirocin (Bactroban Ointment) 0 gm TOP DAILY [facility] Nicotine (Nicoderm Cq) 1 patch TD Q24H [facility] Last Admin: 09/23/18 21:10 Dose: 1 patch Ondansetron HCl (Zofran Odt) 4 mg PO Q8H PRN PRN Reason: Nausea/Vomiting Saccharomyces Boulardii (Florastor) 250 mg PO BID [facility] Last Admin: 09/24/18 09:10 Dose: 250 mg - Labs Labs: 09/24/18 07:14 09/24/18 07:14 - Constitutional Appears: No Acute Distress, Cachectic - Head Exam Head Exam: ATRAUMATIC, NORMAL INSPECTION, NORMOCEPHALIC - Eye Exam Eye Exam: EOMI, Normal appearance, PERRL Additional comments: right upper eyelid echymosis - ENT Exam ENT Exam: Mucous Membranes Moist, Normal Exam. absent: Mucous Membranes Dry - Neck Exam Neck Exam: Full ROM, Normal Inspection Additional comments: dressing placed on left side of anterior neck area, dressing c/d/i, surrounding area nontender, nonerythematous, no edema noted Right side open puncture wound, slightly raised, semi-dry blood, non purulent, no discharge noted, hardening of nearby vessel structure, mild tenderness to palpation. - Respiratory Exam Respiratory Exam: Clear to Ausculation Bilateral, NORMAL BREATHING PATTERN. absent: Accessory Muscle Use, Rales, Rhonchi, Wheezes, Respiratory Distress - Cardiovascular Exam Cardiovascular Exam: Tachycardia, REGULAR RHYTHM, +S1, +S2 - GI/Abdominal Exam GI & Abdominal Exam: Soft, Normal Bowel Sounds. absent: Distended, Guarding, Tenderness - Extremities Exam Extremities Exam: Full ROM. absent: Pedal Edema, Tenderness - Back Exam Back Exam: Full ROM, NORMAL INSPECTION - Neurological Exam Neurological Exam: Alert, Awake, Oriented x3 - Psychiatric Exam Psychiatric exam: Anxious, Normal Affect, Normal Mood - Skin Skin Exam: Dry, Normal Color, Warm. absent: Rash Assessment and Plan - Assessment and Plan (Free Text) Assessment: Patient is a 38 year old female with pmhx of IV drug abuse admitted for left sided neck pain/abscess, I&D performed 09/23, currently on PO abx and methadone taper, possible transfer to [facility] for detox once surgery sign off from case. Plan: 1. Left neck abscess, s/p bedside I&D, pod #1 Assessment/Plan * Surgery consult - Dr Burns - left neck Bedside I&D performed 09/23/2018 * Preoperative/intraoperative/post operative management per surgery * wound culture collected and sent to lab - preliminary result show no organism, no WBC * 1/4in iodoform gauze packing was placed. Hemostasis noted. Dry sterile dressing placed. Patient tolerated procedure well * per surgery, permit anticoagulation post surgery * f/u for patient to be cleared from sx standpoint * Blood cultures - no growth after 24 hours * wound culture - negative * Antibiotics: * Continue Clindamycin 300mg PO TID * No midline to be placed due to risk of patient to use for IV drug use * Tylenol 650mg PO Q6H PRN for fever and pain * toradol given x1 dose last night * NO dilaudid and percocet medication due to pt history of heroin abuse * ID consult - Dr Sandy - help is appreciated - best PO abx as patient will not be getting IV abx 2. IV drug use/heroin use Assessment/Plan * patient denies any needle sharing - r/o HIV - HIV antibody 1 an 2 - negative * Drug panel 10, serum and urine- follow up, hx of PCP use, patient denies using PCP recently * Psych consult - Dr Carmen - help is appreciated to treat patient for heroin withdrawal * Methadone 20 mg PO QD * Ativan 1mg PO Q8h PRN for agitation * Atarax 25mg PO Q8h PRN for anxiety * Colace 100mg PO BID for constipation * D/c dilaudid and percocet medication due to pt history of heroin abuse * Can be transferred to detox once surgical team signs off the case. 3. Hx of muitliple needle injections * Venous doppler B/l UE - unofficial view from pc network technician - right UE basilic vein chronic occlusion, no left UE basilic or cephalic occlusion. * Concern for superficial thrombophlebitis * Start motrin 600mg PO TID 4. Abrasions located over b/l feet * continue Mupirocin ointment TOP Qdaily * they are flat, nondraining 5. Tobacco use disorder * continue Nicotine patch 14mg/24 hr TD Qdaily * Counselled smoking cessation at bedside 6. Hx of hepatitis C * Hepatitis Panel - Hep C antibody - reactive * complete Abdominal U/S - moderate hepatomegaly, diffuse echogenecity in liver may reflect steatosis - no choleithiasis or biliary dilatation. * Patient has not sought out treatment; advised strongly that she should followup outpatient and see what further testing she needs for treatment 7. Prophylaxis * Florastor 250mg PO BID * zofran ODT PO Q8hrs PRN for nausea/vomiting * DVT prophylaxis - SCDs, encourage ambulation * no GI prophylaxis indicated at this time * Regular diet, supplements * Encourage PO water intake as patient does not have IV access for fluids at this time Plan discussed with Dr Twan Yanes, PGY-1
[2018-09-24 11:11] LABS: HEPATITIS C ANTIBODY REACTIVE (NEGATIVE)
--- NOTE | 2018-09-24 12:44 | PCM.PSYCH ---
Initial Psychiatric Evaluation - Initial Psychiatric Evaluation Type of Admission: Voluntary Legal Status: Capacity Current Medications: Active Medications Generic Name Dose Route Start Last Admin Trade Name Freq PRN Reason Stop Dose Admin Acetaminophen 650 mg 09/23/18 18:22 Tylenol 325mg Tab PO Q6 PRN Pain, severe (8-10) Clindamycin HCl 300 mg 09/23/18 19:15 09/24/18 09:10 Cleocin PO 300 mg TID [facility] Administration Protocol Docusate Sodium 100 mg 09/23/18 19:15 09/24/18 09:10 Colace PO 100 mg BID [facility] Administration Hydroxyzine HCl 25 mg 09/23/18 20:15 Atarax PO Q8H PRN Anxiety Sodium Chloride 1,000 mls @ 100 mls/hr 09/23/18 02:00 09/23/18 13:00 Sodium Chloride 0.9% IV Not Given .Q10H [facility] Influenza Virus Vaccine 60 mcg 09/26/18 10:00 Fluzone Quad [id number] IM 09/26/18 10:01 .ONCE ONE Ketorolac Tromethamine 30 mg 09/24/18 06:45 Toradol IM Q6 PRN Pain, moderate (4-7) Lorazepam 1 mg 09/23/18 19:57 Ativan PO TID PRN Agitation Methadone HCl 20 mg 09/24/18 10:00 09/24/18 09:10 Methadone PO 09/28/18 09:59 20 mg Q24H [facility] Administration Taper Mupirocin 0 gm 09/24/18 10:00 09/24/18 12:21 Bactroban Ointment TOP Not Given DAILY [facility] Nicotine 1 patch 09/23/18 20:30 09/23/18 21:10 Nicoderm Cq TD 1 patch Q24H [facility] Administration Ondansetron HCl 4 mg 09/23/18 20:10 Zofran Odt PO Q8H PRN Nausea/Vomiting Pneumococcal Polyvalent Vaccine 0.5 ml 09/26/18 10:00 Pneumovax 23 Vaccine IM 09/26/18 10:01 .ONCE ONE Saccharomyces Boulardii 250 mg 09/23/18 18:30 09/24/18 09:10 Florastor PO 250 mg BID [facility] Administration Past Psychiatric History - Past Psychiatric History Pertinent Medical Hx (Current Medical&Sleep Prob, Allergies): Allergies Allergy/AdvReac Type Severity Reaction Status Date / Time diphenhydramine HCl AdvReac Verified 09/22/18 17:18 [From [facility]] No Known Home Med 09/22/18
--- NOTE | 2018-09-24 13:47 | US ---
Date of service: 09/24/2018 HISTORY: hx of hepatitis C , IV drug use COMPARISON: None. TECHNIQUE: Grayscale imaging was performed. FINDINGS: LIVER: Measures 21.4 cm. There is diffuse increased echogenicity of the liver parenchyma. No mass. No intrahepatic bile duct dilatation. GALLBLADDER: There are no gallstones, wall thickening or pericholecystic fluid. The sonographic Willson's sign is negative. COMMON BILE DUCT: Measures 5.0 mm. No stones. No dilatation. PANCREAS: Unremarkable as visualized. No mass. No ductal dilatation. RIGHT KIDNEY: Measures 13.7cm. Normal echogenicity. No calculus, mass, or hydronephrosis. LEFT KIDNEY: Measures 12.3cm. Normal echogenicity. No calculus, mass, or hydronephrosis. SPLEEN: Mild splenomegaly. Normal echotexture. AORTA: No aneurysmal dilatation. IVC: Unremarkable. OTHER FINDINGS: None. IMPRESSION: Moderate hepatomegaly. Diffuse increased echogenicity in the liver may reflect hepatic steatosis however parenchymal infectious/ inflammatory etiologies cannot be entirely excluded. Clinical and laboratory correlation is advised. No cholelithiasis or biliary dilatation.
[2018-09-24] MEDS: Sodium Chloride 0.9% 1,000 ML IV SCH (15:27)
--- NOTE | 2018-09-24 16:50 | VASCLAB ---
Date of service: 09/24/2018 PROCEDURE: Upper Extremity Venous Duplex Exam HISTORY: r/o thrombophlebitis b/l UE PRIORS: None. TECHNIQUE: Bilateral upper extremity, internal jugular, subclavian, axillary, brachial, ulnar, radial, basilic and upper cephalic veins were evaluated. Flow was assessed with color Doppler, compressibility, assessment of phasic flow and augmentation response. Report prepared by process safety engineering technologist. FINDINGS: RIGHT: 1. Internal Jugular: 1.1. Compressibility - Fully compressible: Thrombus - None : Flow - Phasic: Augmentation -Normal: Reflux - None. 2. Subclavian: 2.1. Compressibility - Fully compressible: Thrombus - None : Flow - Phasic: Augmentation -Normal: Reflux - None. 3. Axillary: 3.1. Compressibility - Fully compressible: Thrombus - None : Flow - Phasic: Augmentation -Normal: Reflux - None. 4. Brachial: 4.1. Compressibility - Fully compressible: Thrombus - None: Flow - Phasic: Augmentation -Normal: Reflux - None. 5. Ulnar: 5.1. Compressibility - Fully compressible: Thrombus - None: Flow - Phasic: Augmentation -Normal: Reflux - None. 6. Radial: 6.1. Compressibility - Fully compressible: Thrombus - None: Flow - Phasic: Augmentation - Normal: Reflux - None. 7. Cephalic: 7.1. Compressibility - Fully compressible: Thrombus - None: Flow - Phasic: Augmentation -Normal: Reflux - None. 8. Basilic: 8.1. Compressibility - Incompressible: Thrombus - Chronic: Flow - Absent : Augmentation - None: Reflux - None. LEFT: 1. Internal Jugular: 1.1. Compressibility - Fully compressible: Thrombus - None : Flow - Phasic: Augmentation -Normal: Reflux - None. 2. Subclavian: 2.1. Compressibility - Fully compressible: Thrombus - None : Flow - Phasic: Augmentation -Normal: Reflux - None. 3. Axillary: 3.1. Compressibility - Fully compressible: Thrombus - None : Flow - Phasic: Augmentation -Normal: Reflux - None. 4. Brachial: 4.1. Compressibility - Fully compressible: Thrombus - None: Flow - Phasic: Augmentation -Normal: Reflux - None. 5. Ulnar: 5.1. Compressibility - Fully compressible: Thrombus - None: Flow - Phasic: Augmentation -Normal: Reflux - None. 6. Radial: 6.1. Compressibility - Fully compressible: Thrombus - None: Flow - Phasic: Augmentation - Normal: Reflux - None. 7. Cephalic: 7.1. Compressibility - : Thrombus - : Flow - : Augmentation -: Reflux - . 8. Basilic: 8.1. Compressibility - : Thrombus - : Flow - : Augmentation -: Reflux - . OTHER FINDINGS: SILVIA Perez notified about the finding. Unable to image the left cephalic and basilic vein due to patient refusal. 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 No evidence of deep vein thrombosis of the right upper extremity with excellent venous flow. Normal valve function noted of the right side. Left: No evidence of vein thrombosis of the left upper extremity with excellent venous flow. Normal valve function noted of the left side.
--- NOTE | 2018-09-24 20:56 | CP.PCM.CON ---
History of Present Illness - History of Present Illness History of Present Illness: dictated Past Patient History - Past Medical History & Family History Past Medical History?: Yes - Past Social History Smoking Status: Heavy Smoker > 10 Cigarettes Daily - CARDIAC Hx Hypertension: No - PULMONARY Hx Tuberculosis: No - NEUROLOGICAL Hx Seizures: No - RENAL Hx Pyelonephritis: Yes (hx "kidney infections") Other/Comment: hx kidney stones - ENDOCRINE/METABOLIC Hx Endocrine Disorders: No - HEMATOLOGICAL/ONCOLOGICAL Hx Human Immunodeficiency Virus (HIV): No - INTEGUMENTARY Hx Dermatological Problems: No - MUSCULOSKELETAL/RHEUMATOLOGICAL Hx Musculoskeletal Disorders: No Hx Falls: No - GASTROINTESTINAL Hx Gastrointestinal Disorders: No - GENITOURINARY/GYNECOLOGICAL Hx Sexually Transmitted Disorders: No - PSYCHIATRIC Hx Substance Use: Yes (heroin, cocaine) - SURGICAL HISTORY Hx Surgeries: No - ANESTHESIA Hx Anesthesia: Yes Hx Anesthesia Reactions: No Meds Allergies/Adverse Reactions: Allergies Allergy/AdvReac Type Severity Reaction Status Date / Time diphenhydramine HCl AdvReac Verified 09/22/18 17:18 [From Sander] - Medications Medications: Current Medications Acetaminophen (Tylenol 325mg Tab) 650 mg PO Q6 PRN PRN Reason: Pain, severe (8-10) Clindamycin HCl (Cleocin) 300 mg PO TID [facility]; Protocol Last Admin: 09/24/18 17:11 Dose: 300 mg Docusate Sodium (Colace) 100 mg PO BID [facility] Last Admin: 09/24/18 17:11 Dose: Not Given Hydroxyzine HCl (Atarax) 25 mg PO Q8H PRN PRN Reason: Anxiety Sodium Chloride (Sodium Chloride 0.9%) 1,000 mls @ 100 mls/hr IV .Q10H [facility] Last Admin: 09/24/18 15:27 Dose: Not Given Ibuprofen (Motrin Tab) 600 mg PO TID [facility] Influenza Virus Vaccine (Fluzone Quad [id number]) 60 mcg IM .ONCE ONE Stop: 09/26/18 10:01 Lorazepam (Ativan) 1 mg PO TID PRN PRN Reason: Agitation Methadone HCl (Methadone) 20 mg PO Q24H [facility]; Taper Stop: 09/28/18 09:59 Last Admin: 09/24/18 09:10 Dose: 20 mg Mupirocin (Bactroban Ointment) 0 gm TOP DAILY [facility] Last Admin: 09/24/18 12:21 Dose: Not Given Nicotine (Nicoderm Cq) 1 patch TD Q24H [facility] Last Admin: 09/23/18 21:10 Dose: 1 patch Ondansetron HCl (Zofran Odt) 4 mg PO Q8H PRN PRN Reason: Nausea/Vomiting Pneumococcal Polyvalent Vaccine (Pneumovax 23 Vaccine) 0.5 ml IM .ONCE ONE Stop: 09/26/18 10:01 Saccharomyces Boulardii (Florastor) 250 mg PO BID [facility] Last Admin: 09/24/18 17:11 Dose: 250 mg Results - Vital Signs Recent Vital Signs: Last Vital Signs Temp 97.9 F 09/24/18 16:00 Pulse 70 09/24/18 16:00 Resp 20 09/24/18 16:00 BP 93/57 L 09/24/18 16:00 Pulse Ox 97 09/24/18 16:00 - Labs Result Diagrams: 09/24/18 07:14 09/24/18 07:14 Labs: Laboratory Results - last 24 hr 09/24/18 09/24/18 09/24/18 07:14 07:14 07:14 WBC 5.1 D RBC 3.85 Hgb 11.6 D Hct 34.4 MCV 89.3 MCH 30.0 MCHC 33.6 RDW 13.4 Plt Count 338 MPV 8.0 Neut % (Auto) 43.4 L Lymph % (Auto) 43.5 H Barren % (Auto) 9.4 Eos % (Auto) 2.9 Baso % (Auto) 0.8 Neut # (Auto) 2.2 Lymph # (Auto) 2.2 Barren # (Auto) 0.5 Eos # (Auto) 0.1 Baso # (Auto) 0.0 Sodium 140 Potassium 3.9 Chloride 102 Carbon Dioxide 32 H Anion Gap 10 BUN 12 Creatinine 0.5 L Est GFR ( Amer) > 60 Est GFR (Non-Af Amer) > 60 Random Glucose 107 H D Calcium 9.1 Phosphorus 3.7 Magnesium 2.1 Total Bilirubin 0.7 AST 21 ALT 12 Alkaline Phosphatase 83 Total Protein 7.4 Albumin 3.6 Globulin 3.8 Albumin/Globulin Ratio 0.9 L Hepatitis A IgM Ab Negative Hep Bs Antigen Negative Hep B Core IgM Ab Negative Hepatitis C Antibody Reactive HIV 1&2 Antibody Screen 09/24/18 07:14 WBC RBC Hgb Hct MCV MCH MCHC RDW Plt Count MPV Neut % (Auto) Lymph % (Auto) Barren % (Auto) Eos % (Auto) Baso % (Auto) Neut # (Auto) Lymph # (Auto) Barren # (Auto) Eos # (Auto) Baso # (Auto) Sodium Potassium Chloride Carbon Dioxide Anion Gap BUN Creatinine Est GFR ( Amer) Est GFR (Non-Af Amer) Random Glucose Calcium Phosphorus Magnesium Total Bilirubin AST ALT Alkaline Phosphatase Total Protein Albumin Globulin Albumin/Globulin Ratio Hepatitis A IgM Ab Hep Bs Antigen Hep B Core IgM Ab Hepatitis C Antibody HIV 1&2 Antibody Screen Negative
[2018-09-25] MEDS: Sodium Chloride 0.9% 1,000 ML IV SCH (04:00)
--- NOTE | 2018-09-25 06:05 | CON ---
DATE: 09/24/2018 INFECTIOUS DISEASE CONSULT REQUESTED BY: Dolores Trent DO HISTORY OF PRESENT ILLNESS: This patient was seen around 06:00 p.m. today. She was trying to eat at the time when I saw her and she told me she is ALLERGIC TO DIPHENHYDRAMINE, gives her adverse reactions and she has come in with an abscess on her left neck for which she was getting p.o. antibiotics and I was to evaluate her. She is 38-year-old. She has a history of IV drug abuse. She is hepatitis C positive. She was admitted on 09/22. She was admitted with left neck pain, started 2 weeks ago, injected heroin in the left neck. She does have other track peña on her legs also and she did not look in any pain at this time when I saw her and she has been on oral antibiotics. PAST MEDICAL HISTORY: Significant for IV drug and hepatitis C. SOCIAL HISTORY: She denies anything. FAMILY HISTORY: Negative. SOCIAL HISTORY: Five cigarettes positively per day for 2 years. No alcohol abuse. She uses four bags a day since last year of IV heroin and she does not work. There was a male member sitting there. REVIEW OF SYSTEMS: She did not give me any complaints of any headaches, just complained of neck pain, otherwise she was busy trying to eat and seemed uncapped. PHYSICAL EXAMINATION: VITAL SIGNS: Her T-max is 97.9, pulse 70, blood pressure is 93/57, respirations 20. She is afebrile. HEENT: Head is atraumatic, normocephalic. Pupils are reacting to light. She appears pale. She denies any ear, nose, throat problems. HEENT exam was unremarkable. NECK: Neck was supple. She does have a small area of an abscess which is superficial and on the left side, and she did complain of tenderness before , and she seemed to be okay, without much pain. HEART: S1, S2 is regular. No murmurs appreciated. LUNGS: Clear. No rhonchi. No rales. No wheezing. ABDOMEN: Soft, nontender. No guarding, no rigidity present. EXTREMITIES: She has some track peña on her arms and legs. LABORATORY DATA: White count 5.1, hemoglobin 11.6. She came with a white count of 12.8 and platelets of 420. It is better now. Her lactate level was 1.5 when she was admitted. Sodium is 140, potassium 3.9, chloride 102, CO2 is 32, anion gap is 10, BUN is 12, creatinine is 0.5. Serology shows hepatis C is positive and HIV is negative. She also had an abdominal ultrasound and has soft tissue neck swelling. Ultrasound shows moderate hepatomegaly, diffuse increased echogenicity in the liver may reflect hepatic steatosis; however, parenchyma is infectious or inflammatory, etiology cannot be excluded. Clinical and lab values are advised. Neck CT she had done which showed findings that there is a large amorphous area of soft tissue swelling left aspect of neck likely representing sialadenitis phlegmon formation with sounding mass, most important, which includes questionable swelling of left epiglottis and left aryepiglottic fold. No discrete abscess identified at this time. ASSESSMENT AND PLAN: So, she will need hepatitis C treatment as outpatient, but she is IV drug abuser, so we do not know the compliance may be the big tissue. There is surgery also following so I want to see the surgery note because I did not make much out of this abscess surgery note which was on 09/23/[address] Burns and , left neck. The patient was placed in supine, Betadine, they did an incision and drainage on her left neck which was done on 09/23/2018. Right now, there was a scab and she seems to be doing fine with clindamycin p.o. and they are on to put a line in, and I think she will be fine with this. She however is tolerating Atarax which has been started for anxiety here and she is on ibuprofen, Colace and Tylenol for pain. So, at this time, she does have hepatitis C. She is left neck IV drug abuser and she is being seen by the psychiatrist for substance abuse and should follow up for hepatitis C with a principal network engineer as outpatient. Kennedi Delgado MD
--- NOTE | 2018-09-25 08:36 | CP.PCM.PN ---
Subjective - Date & Time of Evaluation Date of Evaluation: 09/25/18 Time of Evaluation: 07:40 - Subjective Subjective: General Surgery Pt seen and examined. Reports "bad withdrawals." Neck pain now minimal. No drainage, asked team to return to change dressing. No other complaints. Objective - Vital Signs/Intake and Output Vital Signs (last 24 hours): Temp Pulse Resp BP Pulse Ox 98.9 F 78 20 101/67 97 09/25/18 07:39 09/25/18 07:39 09/25/18 07:39 09/25/18 07:39 09/25/18 07:39 Intake and Output: 09/25/18 09/25/18 06:59 18:59 Intake Total 300 420 Output Total 600 Balance -300 420 - Medications Medications: Current Medications Acetaminophen (Tylenol 325mg Tab) 650 mg PO Q6 PRN PRN Reason: Pain, severe (8-10) Clindamycin HCl (Cleocin) 300 mg PO TID [facility]; Protocol Last Admin: 09/24/18 17:11 Dose: 300 mg Docusate Sodium (Colace) 100 mg PO BID [facility] Last Admin: 09/24/18 17:11 Dose: Not Given Hydroxyzine HCl (Atarax) 25 mg PO Q8H PRN PRN Reason: Anxiety Sodium Chloride (Sodium Chloride 0.9%) 1,000 mls @ 100 mls/hr IV .Q10H [facility] Last Admin: 09/25/18 04:00 Dose: Not Given Ibuprofen (Motrin Tab) 600 mg PO TID [facility] Influenza Virus Vaccine (Fluzone Quad [id number]) 60 mcg IM .ONCE ONE Stop: 09/26/18 10:01 Lorazepam (Ativan) 1 mg PO TID PRN PRN Reason: Agitation Methadone HCl (Methadone) 20 mg PO Q24H [facility]; Taper Stop: 09/28/18 09:59 Last Admin: 09/24/18 09:10 Dose: 20 mg Mupirocin (Bactroban Ointment) 0 gm TOP DAILY [facility] Last Admin: 09/24/18 12:21 Dose: Not Given Nicotine (Nicoderm Cq) 1 patch TD Q24H [facility] Last Admin: 09/24/18 21:20 Dose: 1 patch Ondansetron HCl (Zofran Odt) 4 mg PO Q8H PRN PRN Reason: Nausea/Vomiting Pneumococcal Polyvalent Vaccine (Pneumovax 23 Vaccine) 0.5 ml IM .ONCE ONE Stop: 09/26/18 10:01 Saccharomyces Boulardii (Florastor) 250 mg PO BID [facility] Last Admin: 09/24/18 17:11 Dose: 250 mg - Labs Labs: 09/24/18 07:14 09/24/18 07:14 - Constitutional Appears: Non-toxic, No Acute Distress - Head Exam Head Exam: ATRAUMATIC, NORMOCEPHALIC - Eye Exam Eye Exam: EOMI. absent: Scleral icterus - Neck Exam Neck Exam: Tenderness (mild around incision) Additional comments: Left neck with approx 6x6cm area of induration centered around cruciate incision, mild erythema, no new fluctuance; no drainage Trachea midline - Respiratory Exam Respiratory Exam: NORMAL BREATHING PATTERN. absent: Respiratory Distress - GI/Abdominal Exam GI & Abdominal Exam: Soft. absent: Distended, Tenderness - Neurological Exam Neurological Exam: Alert, Awake, Oriented x3 - Skin Skin Exam: Dry, Warm Assessment and Plan - Assessment and Plan (Free Text) Assessment: 38F IVDU with Left neck abscess s/p Incision and drainage POD#2 Plan: Continue abx per ID F/U wound cx We do not think there is a need for IV abx at this time as the wound is improving on PO abx. Would not recommend PICC in a patient with IV drug abuse problems. No further surgical intervention required at this time. Will sign off. Please reconsult as needed. D/W Dr. Grant Gallegos PGY4
[2018-09-25] MEDS: Saccharomyces Boulardi 250 mg Cap PO SCH ×2 (09:03→17:23)
--- NOTE | 2018-09-25 11:51 | CP.PCM.PN ---
<Len Muiñz - Last Filed: 09/25/18 14:36> Subjective - Date & Time of Evaluation Date of Evaluation: 09/25/18 Time of Evaluation: 12:01 - Subjective Subjective: PGY3 Note for Dr. Trent; Medicine This patient was seen and examined at bedside this AM; she is somewhat somnolent and clearly withdrawing from opiates (sweaty, complaining of diarrhea/pain) denies all other symptoms. Objective - Vital Signs/Intake and Output Vital Signs (last 24 hours): Temp Pulse Resp BP Pulse Ox 98.9 F 78 20 101/67 97 09/25/18 07:39 09/25/18 07:39 09/25/18 07:39 09/25/18 07:39 09/25/18 07:39 Intake and Output: 09/25/18 09/25/18 06:59 18:59 Intake Total 300 420 Output Total 600 Balance -300 420 - Medications Medications: Current Medications Acetaminophen (Tylenol 325mg Tab) 650 mg PO Q6 PRN PRN Reason: Pain, severe (8-10) Clindamycin HCl (Cleocin) 300 mg PO TID [facility]; Protocol Last Admin: 09/25/18 09:04 Dose: 300 mg Docusate Sodium (Colace) 100 mg PO BID [facility] Last Admin: 09/25/18 09:04 Dose: 100 mg Hydroxyzine HCl (Atarax) 25 mg PO Q8H PRN PRN Reason: Anxiety Sodium Chloride (Sodium Chloride 0.9%) 1,000 mls @ 100 mls/hr IV .Q10H [facility] Last Admin: 09/25/18 04:00 Dose: Not Given Ibuprofen (Motrin Tab) 600 mg PO TID [facility] Last Admin: 09/25/18 09:03 Dose: 600 mg Influenza Virus Vaccine (Fluzone Quad [id number]) 60 mcg IM .ONCE ONE Stop: 09/26/18 10:01 Lorazepam (Ativan) 1 mg PO TID PRN PRN Reason: Agitation Methadone HCl (Methadone) 15 mg PO Q24H [facility]; Taper Stop: 09/28/18 09:59 Last Admin: 09/25/18 09:16 Dose: 15 mg Mupirocin (Bactroban Ointment) 0 gm TOP DAILY [facility] Last Admin: 09/25/18 09:36 Dose: Not Given Nicotine (Nicoderm Cq) 1 patch TD Q24H [facility] Last Admin: 09/24/18 21:20 Dose: 1 patch Ondansetron HCl (Zofran Odt) 4 mg PO Q8H PRN PRN Reason: Nausea/Vomiting Pneumococcal Polyvalent Vaccine (Pneumovax 23 Vaccine) 0.5 ml IM .ONCE ONE Stop: 09/26/18 10:01 Saccharomyces Boulardii (Florastor) 250 mg PO BID [facility] Last Admin: 09/25/18 09:03 Dose: 250 mg - Labs Labs: 09/24/18 07:14 09/24/18 07:14 - Constitutional Appears: Cachectic, Chronically Ill - Head Exam Head Exam: ATRAUMATIC - Eye Exam Eye Exam: EOMI, PERRL - Neck Exam Additional comments: there is gauze covering recent InD; no drainage; no purulent drainage/pain at site - Respiratory Exam Respiratory Exam: Clear to Ausculation Bilateral, NORMAL BREATHING PATTERN. absent: Rales, Rhonchi, Wheezes - Cardiovascular Exam Cardiovascular Exam: REGULAR RHYTHM, +S1, +S2 - GI/Abdominal Exam GI & Abdominal Exam: Soft, Normal Bowel Sounds. absent: Tenderness - Extremities Exam Extremities Exam: Full ROM. absent: Calf Tenderness - Back Exam Back Exam: NORMAL INSPECTION. absent: CVA tenderness (L), CVA tenderness (R) - Neurological Exam Neurological Exam: Alert, Awake, Oriented x3 - Psychiatric Exam Psychiatric exam: Normal Affect Assessment and Plan - Assessment and Plan (Free Text) Assessment: 38yo F admitted for left neck abscess 2/2 to chronic IVDA Left neck abscess, s/p bedside I&D * Surgery consult - Dr Burns - left neck Bedside I&D performed 09/23/2018 * Preoperative/intraoperative/post operative management per surgery * wound culture collected and sent to lab - preliminary result show no organism, no WBC * 1/4in iodoform gauze packing was placed. Hemostasis noted. Dry sterile dressing placed. Patient tolerated procedure well * per surgery, permit anticoagulation post surgery * Antibiotics: * Previous abx given - Vanco x1 dose, Augmentin Q12 PO, Zosyn Q6hr IVPB * c/w Clindamycin 300mg PO TID - PO abx * Infectious disease consult (Dr. Delgado) on consult help appreciated * * Tylenol 650mg PO Q6H PRN for fever and pain * D/c dilaudid and percocet medication due to pt history of heroin abuse Pt afebrile; can take clindamycin 600 mg PO TID IV drug use/heroin use * patient denies any needle sharing - r/o HIV - HIV antibody 1 an 2 * Drug panel 9, serum- follow up, hx of PCP use, patient denies using PCP recently * Psych consult - Dr Stratton - help is appreciated to treat patient for heroin withdrawal * Methadone taper * Ativan 1mg PO Q8h PRN for agitation * Atarax 25mg PO Q8h PRN for anxiety * Colace 100mg PO BID for constipation * D/c dilaudid and percocet medication due to pt history of heroin abuse * patient may require inpatient detox when she is cleared from surgery standpoint for discharge Superficial thrombophlebitis * Venous doppler B/l EU negative * tx with NSAID and warm compress Abrasions located over b/l feet * Mupirocin ointment TOP Qdaily * they are flat, nondraining Tobacco use disorder * Nicotine patch 14mg/24 hr TD Qdaily * Counselled smoking cessation at bedside Hx of hepatitis C * Hepatitis Panel - f/u * complete Abdominal U/S - f/u * Patient has not sought out treatment; advised strongly that she should followup outpatient and see what further testing she needs for treatment Prophylaxis * Florastor 250mg PO BID * zofran ODT PO Q8hrs PRN for nausea/vomiting * DVT prophylaxis - SCDs, encourage ambulation * no GI prophylaxis indicated at this time * Regular diet * Encourage PO water intake as patient does not have IV access for fluids at this time * patient would benefit from detox; once medically cleared will be transferred to psych to continue clindamycin for 14 days with florastor; mileu therapy as per psych * spoke to Dr. stratton 09/25/18 at 2:35pm; states he can take patient tomorrow for detox with clindamycin for a total of 14 days to end 10/05/2018 Case discussed and seen with Dr. Twan Muñiz PGY3 <Dolores Trent V - Last Filed: 09/25/18 17:33> Objective - Vital Signs/Intake and Output Vital Signs (last 24 hours): Temp Pulse Resp BP Pulse Ox 98.9 F 78 20 101/67 97 09/25/18 07:39 09/25/18 07:39 09/25/18 07:39 09/25/18 07:39 09/25/18 07:39 Intake and Output: 09/25/18 09/25/18 06:59 18:59 Intake Total 300 670 Output Total 600 Balance -300 670 - Medications Medications: Current Medications Acetaminophen (Tylenol 325mg Tab) 650 mg PO Q6 PRN PRN Reason: Pain, severe (8-10) Clindamycin HCl (Cleocin) 300 mg PO TID [facility]; Protocol Last Admin: 09/25/18 13:00 Dose: 300 mg Docusate Sodium (Colace) 100 mg PO BID [facility] Last Admin: 09/25/18 09:04 Dose: 100 mg Hydroxyzine HCl (Atarax) 25 mg PO Q8H PRN PRN Reason: Anxiety Sodium Chloride (Sodium Chloride 0.9%) 1,000 mls @ 100 mls/hr IV .Q10H [facility] Last Admin: 09/25/18 04:00 Dose: Not Given Ibuprofen (Motrin Tab) 600 mg PO TID [facility] Last Admin: 09/25/18 13:00 Dose: 600 mg Influenza Virus Vaccine (Fluzone Quad [id number]) 60 mcg IM .ONCE ONE Stop: 09/26/18 10:01 Lorazepam (Ativan) 1 mg PO TID PRN PRN Reason: Agitation Methadone HCl (Methadone) 15 mg PO Q24H [facility]; Taper Stop: 09/28/18 09:59 Last Admin: 09/25/18 09:16 Dose: 15 mg Mupirocin (Bactroban Ointment) 0 gm TOP DAILY [facility] Last Admin: 09/25/18 09:36 Dose: Not Given Nicotine (Nicoderm Cq) 1 patch TD Q24H [facility] Last Admin: 09/24/18 21:20 Dose: 1 patch Ondansetron HCl (Zofran Odt) 4 mg PO Q8H PRN PRN Reason: Nausea/Vomiting Pneumococcal Polyvalent Vaccine (Pneumovax 23 Vaccine) 0.5 ml IM .ONCE ONE Stop: 09/26/18 10:01 Saccharomyces Boulardii (Florastor) 250 mg PO BID [facility] Last Admin: 09/25/18 09:03 Dose: 250 mg - Labs Labs: 09/24/18 07:14 09/24/18 07:14 Attending/Attestation - Attestation I have personally seen and examined this patient.: Yes I have fully participated in the care of the patient.: Yes I have reviewed all pertinent clinical information, including history, physical exam and plan: Yes Notes (Text): Patient seen, examined and case discussed with day-time resident. Patient encouraged PO intake of water, reports some sweats; denies fever, denies chills, denies chest pain, denies shortness of breathe, denies abdominal pain, denies dysuria. Patient to continue PO antibiotic. We have discussed with psych, likely transfer to detox tomorrow for heroin withdrawal. Assessment/Plan 1. Left neck abscess, s/p bedside I&D POD 2 Assessment/Plan * Surgery consult - Dr Burns - left neck Bedside I&D performed 09/23/2018 * Preoperative/intraoperative/post operative management per surgery * wound culture collected and sent to lab - preliminary result show no organism, no WBC * 1/4in iodoform gauze packing was placed. Hemostasis noted. Dry sterile dressing placed. Patient tolerated procedure well * per surgery, permit anticoagulation post surgery * No further surgery intervention * Antibiotics: * Previous abx given - Vanco x1 dose, Augmentin Q12 PO, Zosyn Q6hr IVPB * c/w Clindamycin 300mg PO TID (active since 09/23/18) will continue. * Infectious disease consult (Dr. Delgado) on consult help appreciated * agree with PO clindamycin * Tylenol 650mg PO Q6H PRN for fever and pain * D/c dilaudid and percocet medication due to pt history of heroin abuse 2. IV drug use/heroin use Assessment/Plan * patient denies any needle sharing - r/o HIV - HIV antibody 1 an 2 * Drug panel 9, serum- follow up, hx of PCP use, patient denies using PCP recently * Psych consult - Dr Stratton - help is appreciated to treat patient for heroin withdrawal * Methadone taper * Ativan 1mg PO Q8h PRN for agitation * Atarax 25mg PO Q8h PRN for anxiety * Colace 100mg PO BID for constipation * D/c dilaudid and percocet medication due to pt history of heroin abuse * patient may require inpatient detox when she is cleared from surgery standpo int for discharge 3. Superficial thrombophlebitis Assessment/Plan * Venous doppler B/l EU negative * tx with NSAID and warm compress * Motrin 600mg PO TID 4. Abrasions located over b/l feet Assessment/Plan * Mupirocin ointment TOP Qdaily * they are flat, nondraining 5. Tobacco use disorder Assessment/Plan * Nicotine patch 14mg/24 hr TD Qdaily * Counselled smoking cessation at bedside 6. Hx of hepatitis C Assessment/Plan * Hepatitis Panel -Hepatitis C Reactive Ab+ * complete Abdominal U/S (09/24): moderate hepatomegaly. Diffuse increased echogenicity in the liver may reflect hepatic steaosis however, parenchymal infectious/inflammatory etiologies. No cholelithiasis or biliary dilatation * Patient has not sought out treatment; advised strongly that she should followup outpatient and see what further testing she needs for treatment 7.Prophylaxis * Florastor 250mg PO BID * zofran ODT PO Q8hrs PRN for nausea/vomiting * DVT prophylaxis - SCDs, encourage ambulation * no GI prophylaxis indicated at this time * Regular diet * Encourage PO water intake as patient does not have IV access for fluids at this time * patient would benefit from detox; once medically cleared will be transferred to psych to continue clindamycin for 14 days with florastor; mileu therapy as per psych * spoke to Dr. stratton 09/25/18 at 2:35pm; states he can take patient tomorrow for detox with clindamycin for a total of 14 days to end 10/05/2018 Disposition: pending bed availability for heroin detox.
[2018-09-26] MEDS: Sodium Chloride 0.9% 1,000 ML IV SCH (00:43)
[2018-09-26 07:36] VITALS: BP 89/51; PULSE 63; RESP 20; TEMP 98; O2SAT 98
[2018-09-26] MEDS: Saccharomyces Boulardi 250 mg Cap PO SCH (09:52)
[2018-09-26] MEDS ORDERED: Influenza Vaccine 60 MCG/0.5 ML SYR (3 yr & up) IM ONE (10:00)
[2018-09-26] MEDS ORDERED: Pneumococcal 23-Valent Vaccine IM ONE (10:00)
--- NOTE | 2018-09-26 10:02 | CP.PCM.PN ---
<Len Muñiz - Last Filed: 09/26/18 11:40> Subjective - Date & Time of Evaluation Date of Evaluation: 09/26/18 Time of Evaluation: 10:00 - Subjective Subjective: PGY3 Note for Dr. Trent As per nursing staff, the patient had her "boyfriend" visiting and brought smelly fish; as per roommate she could smell burning and stated that they were trying to do drugs; patient visit was unsupervised; afterwards the patient was refusing to have security search her things, and is refusing to take a urine drug screen. The patient denies any of the above, stating that only her family was visiting her and that none of these people would bring her drugs. She was finally agreeable to have security go through her things when I asked. They did not find anything. She is refusing detox at this time. Objective - Vital Signs/Intake and Output Vital Signs (last 24 hours): Temp Pulse Resp BP Pulse Ox 98.0 F 63 20 89/51 L 98 09/26/18 07:35 09/26/18 07:35 09/26/18 07:35 09/26/18 07:35 09/26/18 07:35 Intake and Output: 09/26/18 09/26/18 06:59 18:59 Intake Total 500 50 Balance 500 50 - Medications Medications: Current Medications Acetaminophen (Tylenol 325mg Tab) 650 mg PO Q6 PRN PRN Reason: Pain, severe (8-10) Clindamycin HCl (Cleocin) 300 mg PO TID [facility]; Protocol Last Admin: 09/26/18 09:52 Dose: 300 mg Docusate Sodium (Colace) 100 mg PO BID [facility] Last Admin: 09/26/18 09:52 Dose: Not Given Hydroxyzine HCl (Atarax) 25 mg PO Q8H PRN PRN Reason: Anxiety Ibuprofen (Motrin Tab) 600 mg PO TID [facility] Last Admin: 09/26/18 09:51 Dose: 600 mg Influenza Virus Vaccine (Fluzone Quad [id number]) 60 mcg IM .ONCE ONE Stop: 09/26/18 10:01 Last Admin: 09/26/18 09:52 Dose: Not Given Lorazepam (Ativan) 1 mg PO TID PRN PRN Reason: Agitation Last Admin: 09/25/18 17:24 Dose: 1 mg Methadone HCl (Methadone) 10 mg PO ONCE ONE Stop: 09/26/18 10:01 Last Admin: 09/26/18 09:51 Dose: 10 mg Mirtazapine (Remeron) 15 mg PO HS [facility] Mupirocin (Bactroban Ointment) 0 gm TOP DAILY [facility] Last Admin: 09/26/18 09:56 Dose: Not Given Nicotine (Nicoderm Cq) 1 patch TD Q24H [facility] Last Admin: 09/25/18 22:34 Dose: 1 patch Ondansetron HCl (Zofran Odt) 4 mg PO Q8H PRN PRN Reason: Nausea/Vomiting Pneumococcal Polyvalent Vaccine (Pneumovax 23 Vaccine) 0.5 ml IM .ONCE ONE Stop: 09/26/18 10:01 Last Admin: 09/26/18 09:53 Dose: Not Given Saccharomyces Boulardii (Florastor) 250 mg PO BID [facility] Last Admin: 09/26/18 09:52 Dose: 250 mg - Labs Labs: 09/24/18 07:14 09/24/18 07:14 - Constitutional Appears: Cachectic, Chronically Ill - Head Exam Head Exam: absent: ATRAUMATIC - Eye Exam Eye Exam: EOMI, PERRL Pupil Exam: PERRL Additional comments: pinpoint pupils - ENT Exam ENT Exam: Mucous Membranes Moist - Neck Exam Neck Exam: Full ROM Additional comments: patient has pus coming out of site where drainage was performed, less painful to palpation, good pulses, no blood coming out - Respiratory Exam Respiratory Exam: Clear to Ausculation Bilateral, NORMAL BREATHING PATTERN. absent: Rales, Rhonchi, Wheezes - Cardiovascular Exam Cardiovascular Exam: REGULAR RHYTHM, +S1, +S2 - GI/Abdominal Exam GI & Abdominal Exam: Soft, Normal Bowel Sounds. absent: Tenderness - Extremities Exam Extremities Exam: Full ROM. absent: Calf Tenderness - Back Exam Back Exam: NORMAL INSPECTION. absent: CVA tenderness (L), CVA tenderness (R) - Neurological Exam Neurological Exam: Alert, Awake, Oriented x3 - Psychiatric Exam Psychiatric exam: Agitated, Anxious. absent: Normal Affect - Skin Skin Exam: Warm Assessment and Plan - Assessment and Plan (Free Text) Assessment: 38yo F admitted for left neck abscess 2/2 to chronic IVDA Left neck abscess, s/p bedside I&D * Surgery consult - Dr Burns - left neck Bedside I&D performed 09/23/2018 * Preoperative/intraoperative/post operative management per surgery * wound culture collected and sent to lab - preliminary result show no organism, no WBC * 1/4in iodoform gauze packing was placed. Hemostasis noted. Dry sterile dressing placed. Patient tolerated procedure well * per surgery, permit anticoagulation post surgery * Antibiotics: * Previous abx given - Vanco x1 dose, Augmentin Q12 PO, Zosyn Q6hr IVPB * c/w Clindamycin 300mg PO TID - PO abx * Infectious disease consult (Dr. Delgado) on consult help appreciated * * Tylenol 650mg PO Q6H PRN for fever and pain * D/c dilaudid and percocet medication due to pt history of heroin abuse Pt afebrile; can take clindamycin 300 mg PO TID for 10 days Florastor 250mg BID 2 hours before or after abx IV drug use/heroin use * patient denies any needle sharing - r/o HIV - HIV antibody 1 an 2 * Drug panel 9, serum- follow up, hx of PCP use, patient denies using PCP recently * Psych consult - Dr Stratton - help is appreciated to treat patient for heroin withdrawal * Methadone taper * Ativan 1mg PO Q8h PRN for agitation * Atarax 25mg PO Q8h PRN for anxiety * Colace 100mg PO BID for constipation * D/c dilaudid and percocet medication due to pt history of heroin abuse * patient may require inpatient detox when she is cleared from surgery standpoint for discharge patient is refusing inpatient detox because we are "not giving her enough methadone" Superficial thrombophlebitis * Venous doppler B/l EU negative * tx with NSAID and warm compress Abrasions located over b/l feet * Mupirocin ointment TOP Qdaily * they are flat, nondraining Tobacco use disorder * Nicotine patch 14mg/24 hr TD Qdaily * Counselled smoking cessation at bedside Hx of hepatitis C * Hepatitis Panel - f/u * complete Abdominal U/S - f/u * Patient has not sought out treatment; advised strongly that she should followup outpatient and see what further testing she needs for treatment Prophylaxis * Florastor 250mg PO BID * zofran ODT PO Q8hrs PRN for nausea/vomiting * DVT prophylaxis - SCDs, encourage ambulation * no GI prophylaxis indicated at this time * Regular diet * Encourage PO water intake as patient does not have IV access for fluids at this time * patient would benefit from detox; once medically cleared will be transferred to psych to continue clindamycin for 14 days with florastor; mileu therapy as per psych * spoke to Dr. stratton 09/25/18 at 2:35pm; states he can take patient tomorrow for detox with clindamycin for a total of 14 days to end 10/05/2018 Case discussed and seen with Dr. Trent DispoL: as patient is denied inpatient detox patient likely to be d/c today clindamycin 300mg PO TID florastor f/u with surgery within the week for packing/wound check f/u PMD within the week too if patient develops diarrhea profuse/fever come back to ED Len Muñiz PGY3 <Dolores Trent V - Last Filed: 09/26/18 16:14> Objective - Vital Signs/Intake and Output Vital Signs (last 24 hours): Temp Pulse Resp BP Pulse Ox 98.0 F 63 20 89/51 L 98 09/26/18 07:35 09/26/18 07:35 09/26/18 07:35 09/26/18 07:35 09/26/18 07:35 Intake and Output: 09/26/18 09/26/18 06:59 18:59 Intake Total 500 150 Balance 500 150 - Labs Labs: 09/24/18 07:14 09/24/18 07:14 Attending/Attestation - Attestation I have personally seen and examined this patient.: Yes I have fully participated in the care of the patient.: Yes I have reviewed all pertinent clinical information, including history, physical exam and plan: Yes Notes (Text): Patient seen, examined and case discussed with day-time resident. Patient seen with day-time resident, Dr. Samuel and primary nurse, Martha in regards to the events described overnight regarding to the patient; wherein patient was visited overnight, her roommate reports that the room smelled like drug use. Patient at bedside, adamantly denying she did any drugs. She refuses the urine drug screen multiple times. She was searched by security this morning given the strong suspicion of drug use; no drug paraphanrila was found. Patient denies her boyfriend visited her; reports only family members have. Please note: patient's boyfriend sticker is on the wall with his full name and labeled essentially as boy friend. Patient during the course of this conversation has refused several profanities such as "fuck this" and "fuck that" and what you think "i would do fucking drugs" or "you think my family would given me drugs". I did advised her that I did not appreciate being cursed at, which she did respond "i am cursing at the situation; not you". I did speak with Dr. Stratton, who reports she is not a candidate for detox if she is going to take drugs while detox that she could have with the methadone. I spoke with the patient and addresses that concern with her as well; that she could potentially from her heroin use alone as well as in combination with therapy to help her wean from the heroin. I did address that her heroin use is a lifelong problem and that if she wants to pursue avenues to get off drugs we have provided her 2 resources: narcotic anonymous and the phone of [facility] for methadone. we have also advised if she seeks detox she can ask the emergency room she is requesting detox, which she replied "I am never coming back here" and i reported irregardless she needs to know that is an option. I did look at patient's neck; there is no apparent drainage on exam. I spoke with surgery resident who noted that there is no dressing required for the patient. Patient will continue clindamycin as outpatient to treatment of neck abscess. She does not have fever and white count had resolved in prior blood work. Blood cultures show no growth and wound culture show no culture. Discharge Diagnoses: 1. Left neck abscess, s/p bedside I&D POD 3 Assessment/Plan * Surgery consult - Dr Burns - left neck Bedside I&D performed 09/23/2018 * Preoperative/intraoperative/post operative management per surgery * wound culture collected and sent to lab - preliminary result show no organism, no WBC * 1/4in iodoform gauze packing was placed. Hemostasis noted. Dry sterile dressing placed. Patient tolerated procedure well * per surgery, permit anticoagulation post surgery * No further surgery intervention * Antibiotics: * Previous abx given - Vanco x1 dose, Augmentin Q12 PO, Zosyn Q6hr IVPB * will discharge on Clindamycin 300mg PO TID (active since 09/23/18) * Infectious disease consult (Dr. Delgado) on consult help appreciated * agree with PO clindamycin * Tylenol 650mg PO Q6H PRN for fever and pain * D/c dilaudid and percocet medication due to pt history of heroin abuse 2. IV drug use/heroin use Assessment/Plan * patient denies any needle sharing - r/o HIV - HIV antibody 1 an 2 * Drug panel 9, serum- follow up, hx of PCP use, patient denies using PCP recently * Patient has refused drug screens especially after suspected use with her boy friend the night prior * Psych consult - Dr Stratton -->she is not candidate for detox in light of suspe cted drug use in the hospital * Recommended for patient to establish care with [facility] for methadone; information provided to the patient * Patient has been counselled * D/c dilaudid (had never received) and percocet (started on prior service) medication due to pt history of heroin abuse 3. Superficial thrombophlebitis Assessment/Plan * Venous doppler B/l EU negative * tx with NSAID and warm compress * Motrin 600mg PO TID-->motrin available over the counter 4. Abrasions located over b/l feet Assessment/Plan * Mupirocin ointment TOP Qdaily * they are flat, nondraining 5. Tobacco use disorder Assessment/Plan * Nicotine patch 14mg/24 hr TD Qdaily * Counselled smoking cessation at bedside 6. Hx of hepatitis C Assessment/Plan * Hepatitis Panel -Hepatitis C Reactive Ab+ * complete Abdominal U/S (09/24): moderate hepatomegaly. Diffuse increased echogenicity in the liver may reflect hepatic steaosis however, parenchymal infectious/inflammatory etiologies. No cholelithiasis or biliary dilatation * Patient has not sought out treatment; advised strongly that she should followup outpatient and see what further testing she needs for treatment 7.Prophylaxis * Florastor 250mg PO BID * zofran ODT PO Q8hrs PRN for nausea/vomiting * DVT prophylaxis - SCDs, encourage ambulation * no GI prophylaxis indicated at this time * Regular diet * Encourage PO water intake as patient does not have IV access for fluids at this time * patient would benefit from detox except that she is likely actively using drugs * Given the event from overnight, we have spoken with primary nurse, I have spoken with the nursing supervisor cellars, Deyanira, and have advised the resident to have security search patient's belongings, drug screen has been ordered and patient is actively refusing it. Per psych, she is not a candidate and provided the number to [facility] for methadone. Patient has been STRONGLY advised by myself if she continues to heroin she will suffer consequences including but not limited to deadly heart rhythms and , and CANNOT mix her drug with her surrogate method such as methadone because she can from that.
--- NOTE | 2018-09-26 11:43 | CP.PCM.DIS ---
<Len Muñiz - Last Filed: 09/26/18 11:40> Provider - Provider Date of Admission: 09/23/18 02:21 Attending physician: Dolores Trent DO Consults: 09/23/18 01:09 General Surgery Consult Stat Comment: Consulting Provider: Ying Burns Consulting Physician: Ying Burns Reason for Consult: neck soft tissue abscess 09/23/18 18:19 Psychiatry Consult Routine Comment: Consulting Provider: Osvaldo Carmen Consulting Physician: Osvaldo Carmen Reason for Consult: heroin withadrawal 09/24/18 09:47 Infectious Disease Consult Routine Comment: Consulting Provider: Kennedi Delgado Consulting Physician: Kennedi Delgado Reason for Consult: po option, neck abscess, signif iv drug use hx Time Spent in preparation of Discharge (in minutes): 45 Hospital Course - Lab Results Lab Results: Micro Results 09/22/18 20:15 Blood-Venous Blood Culture - Preliminary NO GROWTH AFTER 3 DAYS 09/22/18 20:40 Blood-Venous Blood Culture - Preliminary NO GROWTH AFTER 3 DAYS 09/23/18 10:19 Abscess - Neck-Left Gram Stain - Final 09/23/18 10:19 Abscess - Neck-Left Wound Culture - Preliminary No growth. Most Recent Lab Values WBC 5.1 K/uL (4.8-10.8) D 09/24/18 07:14 RBC 3.85 Mil/uL (3.80-5.20) 09/24/18 07:14 Hgb 11.6 g/dL (11.0-16.0) D 09/24/18 07:14 Hct 34.4 % (34.0-47.0) 09/24/18 07:14 MCV 89.3 fL (81.0-99.0) 09/24/18 07:14 MCH 30.0 pg (27.0-31.0) 09/24/18 07:14 MCHC 33.6 g/dL (33.0-37.0) 09/24/18 07:14 RDW 13.4 % (11.5-14.5) 09/24/18 07:14 Plt Count 338 K/uL (130-400) 09/24/18 07:14 MPV 8.0 fL (7.2-11.7) 09/24/18 07:14 Neut % (Auto) 43.4 % (50.0-75.0) L 09/24/18 07:14 Lymph % (Auto) 43.5 % (20.0-40.0) H 09/24/18 07:14 [place] % (Auto) 9.4 % (0.0-10.0) 09/24/18 07:14 Eos % (Auto) 2.9 % (0.0-4.0) 09/24/18 07:14 Baso % (Auto) 0.8 % (0.0-2.0) 09/24/18 07:14 Neut # (Auto) 2.2 K/uL (1.8-7.0) 09/24/18 07:14 Lymph # (Auto) 2.2 K/uL (1.0-4.3) 09/24/18 07:14 [place]bar[place] # (Auto) 0.5 K/uL (0.0-0.8) 09/24/18 07:14 Eos # (Auto) 0.1 K/uL (0.0-0.7) 09/24/18 07:14 Baso # (Auto) 0.0 K/uL (0.0-0.2) 09/24/18 07:14 pO2 28 mm/Hg (30-55) L 09/22/18 20:35 VBG pH 7.38 (7.32-7.43) 09/22/18 20:35 VBG pCO2 62 mmHg (40-60) H 09/22/18 20:35 VBG HCO3 30.8 mmol/L 09/22/18 20:35 VBG Total CO2 38.6 mmol/L (22-28) H 09/22/18 20:35 VBG O2 Sat (Calc) 60.4 % (40-65) 09/22/18 20:35 VBG Base Excess 9.2 mmol/L (0.0-2.0) H 09/22/18 20:35 VBG Potassium 5.1 mmol/L (3.6-5.2) 09/22/18 20:35 Sodium 140.0 mmol/l (132-148) 09/22/18 20:35 Chloride 102.0 mmol/L (98-107) 09/22/18 20:35 Glucose 145 mg/dl (65-105) H 09/22/18 20:35 Lactate 1.5 mmol/L (0.7-2.1) 09/22/18 20:35 FiO2 21.0 % 09/22/18 20:35 Sodium 140 mmol/L (132-148) 09/24/18 07:14 Potassium 3.9 mmol/L (3.6-5.2) 09/24/18 07:14 Chloride 102 mmol/L (98-107) 09/24/18 07:14 Carbon Dioxide 32 mmol/L (22-30) H 09/24/18 07:14 Anion Gap 10 (10-20) 09/24/18 07:14 BUN 12 mg/dL (7-17) 09/24/18 07:14 Creatinine 0.5 mg/dL (0.7-1.2) L 09/24/18 07:14 Est GFR ( Amer) > 60 09/24/18 07:14 Est GFR (Non-Af Amer) > 60 09/24/18 07:14 Random Glucose 107 mg/dL (65-105) H D 09/24/18 07:14 Calcium 9.1 mg/dl (8.6-10.4) 09/24/18 07:14 Phosphorus 3.7 mg/dL (2.5-4.5) 09/24/18 07:14 Magnesium 2.1 mg/dL (1.6-2.3) 09/24/18 07:14 Total Bilirubin 0.7 mg/dL (0.2-1.3) 09/24/18 07:14 AST 21 U/L (14-36) 09/24/18 07:14 ALT 12 U/L (9-52) 09/24/18 07:14 Alkaline Phosphatase 83 U/L (38-126) 09/24/18 07:14 Total Protein 7.4 g/dL (6.3-8.3) 09/24/18 07:14 Albumin 3.6 g/dL (3.5-5.0) 09/24/18 07:14 Globulin 3.8 gm/dL (2.2-3.9) 09/24/18 07:14 Albumin/Globulin Ratio 0.9 (1.0-2.1) L 09/24/18 07:14 Venous Blood Potassium 5.1 mmol/L (3.6-5.2) 09/22/18 20:35 Hepatitis A IgM Ab Negative (NEGATIVE) 09/24/18 07:14 Hep Bs Antigen Negative (NEGATIVE) 09/24/18 07:14 Hep B Core IgM Ab Negative (NEGATIVE) 09/24/18 07:14 Hepatitis C Antibody Reactive (NEGATIVE) 09/24/18 07:14 HIV 1&2 Antibody Screen Negative (NEGATIVE) 09/24/18 07:14 - Hospital Course Hospital Course: As per nursing staff, the patient had her "boyfriend" visiting and brought smelly fish; as per roommate she could smell burning and stated that they were trying to do drugs; patient visit was unsupervised; afterwards the patient was refusing to have security search her things, and is refusing to take a urine drug screen. The patient denies any of the above, stating that only her family was visiting her and that none of these people would bring her drugs. She was finally agreeable to have security go through her things when I asked. They did not find anything. She is refusing detox at this time. The patient had an InD of the site on her left anterior neck, cultures were sent which are negative, WBC recovered with antibiotics. The patient does not have any packing in place and will not need to have packing removed. Prescriptions: 1) Clindamycin 300mg TID PO 2) Florastor 250mg BID 2 hours before or after abx 3) f/u with [facility], 3) f/u with narcotics anonymous This patient is clear for d/c as per Dr. Trent. Discharge Exam - Head Exam Head Exam: absent: ATRAUMATIC - Eye Exam Additional comments: please refer to progress note from today for physical exam Discharge Plan - Discharge Medications Prescriptions: RX: Clindamycin [Cleocin] 300 mg PO TID #30 cap Saccharomyces Boulardi [Florastor] 250 mg PO BID #60 cap - Follow Up Plan Condition: STABLE Disposition: HOME/ ROUTINE Patient education suggested?: Yes Instructions: Saccharomyces boulardii, Clindamycin (Systemic), Abscess (GEN) Additional Instructions: Please make sure to take your antibiotics, 300mg PO Clindamycin three times a day for 10 days Please make sure to take florastor, 250mg twice a day, two hours before or after the antibiotics please followup with the methadone clinic at [facility] [phone] please followup with narcotics anonymous if you feel like using <Dolores Trent V - Last Filed: 09/26/18 16:16> Provider - Provider Date of Admission: 09/23/18 02:21 Attending physician: Dolores Trent DO Consults: 09/23/18 01:09 General Surgery Consult Stat Comment: Consulting Provider: Ying Burns Consulting Physician: Ying Burns Reason for Consult: neck soft tissue abscess 09/23/18 18:19 Psychiatry Consult Routine Comment: Consulting Provider: Osvaldo Carmen Consulting Physician: Osvaldo Carmen Reason for Consult: heroin withadrawal 09/24/18 09:47 Infectious Disease Consult Routine Comment: Consulting Provider: Kennedi Delgado Consulting Physician: Kennedi Delgado Reason for Consult: po option, neck abscess, signif iv drug use hx Hospital Course - Lab Results Lab Results: Micro Results 09/23/18 10:19 Abscess - Neck-Left Gram Stain - Final 09/23/18 10:19 Abscess - Neck-Left Wound Culture - Final No Growth 09/22/18 20:15 Blood-Venous Blood Culture - Preliminary NO GROWTH AFTER 3 DAYS 09/22/18 20:40 Blood-Venous Blood Culture - Preliminary NO GROWTH AFTER 3 DAYS Most Recent Lab Values WBC 5.1 K/uL (4.8-10.8) D 09/24/18 07:14 RBC 3.85 Mil/uL (3.80-5.20) 09/24/18 07:14 Hgb 11.6 g/dL (11.0-16.0) D 09/24/18 07:14 Hct 34.4 % (34.0-47.0) 09/24/18 07:14 MCV 89.3 fL (81.0-99.0) 09/24/18 07:14 MCH 30.0 pg (27.0-31.0) 09/24/18 07:14 MCHC 33.6 g/dL (33.0-37.0) 09/24/18 07:14 RDW 13.4 % (11.5-14.5) 09/24/18 07:14 Plt Count 338 K/uL (130-400) 09/24/18 07:14 MPV 8.0 fL (7.2-11.7) 09/24/18 07:14 Neut % (Auto) 43.4 % (50.0-75.0) L 09/24/18 07:14 Lymph % (Auto) 43.5 % (20.0-40.0) H 09/24/18 07:14 [place] % (Auto) 9.4 % (0.0-10.0) 09/24/18 07:14 Eos % (Auto) 2.9 % (0.0-4.0) 09/24/18 07:14 Baso % (Auto) 0.8 % (0.0-2.0) 09/24/18 07:14 Neut # (Auto) 2.2 K/uL (1.8-7.0) 09/24/18 07:14 Lymph # (Auto) 2.2 K/uL (1.0-4.3) 09/24/18 07:14 [place] # (Auto) 0.5 K/uL (0.0-0.8) 09/24/18 07:14 Eos # (Auto) 0.1 K/uL (0.0-0.7) 09/24/18 07:14 Baso # (Auto) 0.0 K/uL (0.0-0.2) 09/24/18 07:14 pO2 28 mm/Hg (30-55) L 09/22/18 20:35 VBG pH 7.38 (7.32-7.43) 09/22/18 20:35 VBG pCO2 62 mmHg (40-60) H 09/22/18 20:35 VBG HCO3 30.8 mmol/L 09/22/18 20:35 VBG Total CO2 38.6 mmol/L (22-28) H 09/22/18 20:35 VBG O2 Sat (Calc) 60.4 % (40-65) 09/22/18 20:35 VBG Base Excess 9.2 mmol/L (0.0-2.0) H 09/22/18 20:35 VBG Potassium 5.1 mmol/L (3.6-5.2) 09/22/18 20:35 Sodium 140.0 mmol/l (132-148) 09/22/18 20:35 Chloride 102.0 mmol/L (98-107) 09/22/18 20:35 Glucose 145 mg/dl (65-105) H 09/22/18 20:35 Lactate 1.5 mmol/L (0.7-2.1) 09/22/18 20:35 FiO2 21.0 % 09/22/18 20:35 Sodium 140 mmol/L (132-148) 09/24/18 07:14 Potassium 3.9 mmol/L (3.6-5.2) 09/24/18 07:14 Chloride 102 mmol/L (98-107) 09/24/18 07:14 Carbon Dioxide 32 mmol/L (22-30) H 09/24/18 07:14 Anion Gap 10 (10-20) 09/24/18 07:14 BUN 12 mg/dL (7-17) 09/24/18 07:14 Creatinine 0.5 mg/dL (0.7-1.2) L 09/24/18 07:14 Est GFR ( Amer) > 60 09/24/18 07:14 Est GFR (Non-Af Amer) > 60 09/24/18 07:14 Random Glucose 107 mg/dL (65-105) H D 09/24/18 07:14 Calcium 9.1 mg/dl (8.6-10.4) 09/24/18 07:14 Phosphorus 3.7 mg/dL (2.5-4.5) 09/24/18 07:14 Magnesium 2.1 mg/dL (1.6-2.3) 09/24/18 07:14 Total Bilirubin 0.7 mg/dL (0.2-1.3) 09/24/18 07:14 AST 21 U/L (14-36) 09/24/18 07:14 ALT 12 U/L (9-52) 09/24/18 07:14 Alkaline Phosphatase 83 U/L (38-126) 09/24/18 07:14 Total Protein 7.4 g/dL (6.3-8.3) 09/24/18 07:14 Albumin 3.6 g/dL (3.5-5.0) 09/24/18 07:14 Globulin 3.8 gm/dL (2.2-3.9) 09/24/18 07:14 Albumin/Globulin Ratio 0.9 (1.0-2.1) L 09/24/18 07:14 Venous Blood Potassium 5.1 mmol/L (3.6-5.2) 09/22/18 20:35 Hepatitis A IgM Ab Negative (NEGATIVE) 09/24/18 07:14 Hep Bs Antigen Negative (NEGATIVE) 09/24/18 07:14 Hep B Core IgM Ab Negative (NEGATIVE) 09/24/18 07:14 Hepatitis C Antibody Reactive (NEGATIVE) 09/24/18 07:14 HIV 1&2 Antibody Screen Negative (NEGATIVE) 09/24/18 07:14 Attending/Attestation - Attestation I have personally seen and examined this patient.: Yes I have fully participated in the care of the patient.: Yes I have reviewed all pertinent clinical information, including history, physical exam and plan: Yes Notes (Text): Patient seen, examined and case discussed with day-time resident. Patient seen with day-time resident, Dr. Samuel and primary nurse, Martha in regards to the events described overnight regarding to the patient; wherein patient was visited overnight, her roommate reports that the room smelled like drug use. Patient at bedside, adamantly denying she did any drugs. She refuses the urine drug screen multiple times. She was searched by security this morning given the strong suspicion of drug use; no drug paraphanrila was found. Patient denies her boyfriend visited her; reports only family members have. Please note: patient's boyfriend sticker is on the wall with his full name and labeled essentially as boy friend. Patient during the course of this conversation has refused several profanities such as "fuck this" and "fuck that" and what you think "i would do fucking drugs" or "you think my family would given me drugs". I did advised her that I did not appreciate being cursed at, which she did respond "i am cursing at the situation; not you". I did speak with Dr. Carmen, who reports she is not a candidate for detox if she is going to take drugs while detox that she could have with the methadone. I spoke with the patient and addresses that concern with her as well; that she could potentially from her heroin use alone as well as in combination with therapy to help her wean from the heroin. I did address that her heroin use is a lifelong problem and that if she wants to pursue avenues to get off drugs we have provided her 2 resources: narcotic anonymous and the phone of [facility] for methadone. we have also advised if she seeks detox she can ask the emergency room she is requesting detox, which she replied "I am never coming back here" and i reported irregardless she needs to know that is an option. I did look at patient's neck; there is no apparent drainage on exam. I spoke with surgery resident who noted that there is no dressing required for the patient. Patient will continue clindamycin as outpatient to treatment of neck abscess. She does not have fever and white count had resolved in prior blood work. Blood cultures show no growth and wound culture show no culture. This is a brief summary of patient's hospitalization. Please EMR for full detail of record. Discharge Diagnoses: 1. Left neck abscess, s/p bedside I&D POD 3 Assessment/Plan * Surgery consult - Dr Burns - left neck Bedside I&D performed 09/23/2018 * Preoperative/intraoperative/post operative management per surgery * wound culture collected and sent to lab - preliminary result show no organism, no WBC * 1/4in iodoform gauze packing was placed. Hemostasis noted. Dry sterile dressing placed. Patient tolerated procedure well * per surgery, permit anticoagulation post surgery * No further surgery intervention * Antibiotics: * Previous abx given - Vanco x1 dose, Augmentin Q12 PO, Zosyn Q6hr IVPB * will discharge on Clindamycin 300mg PO TID (active since 09/23/18) * Infectious disease consult (Dr. Delgado) on consult help appreciated * agree with PO clindamycin * Tylenol 650mg PO Q6H PRN for fever and pain * D/c dilaudid and percocet medication due to pt history of heroin abuse 2. IV drug use/heroin use Assessment/Plan * patient denies any needle sharing - r/o HIV - HIV antibody 1 an 2 * Drug panel 9, serum- follow up, hx of PCP use, patient denies using PCP recently * Patient has refused drug screens especially after suspected use with her boyfriend the night prior * Psych consult - Dr Carmen -->she is not candidate for detox in light of suspected drug use in the hospital * Recommended for patient to establish care with [facility] for methadone; information provided to the patient * Patient has been counselled * D/c dilaudid (had never received) and percocet (started on prior service) medication due to pt history of heroin abuse 3. Superficial thrombophlebitis Assessment/Plan * Venous doppler B/l EU negative * tx with NSAID and warm compress * Motrin 600mg PO TID-->motrin available over the counter 4. Abrasions located over b/l feet Assessment/Plan * Mupirocin ointment TOP Qdaily * they are flat, nondraining 5. Tobacco use disorder Assessment/Plan * Nicotine patch 14mg/24 hr TD Qdaily * Counselled smoking cessation at bedside 6. Hx of hepatitis C Assessment/Plan * Hepatitis Panel -Hepatitis C Reactive Ab+ * complete Abdominal U/S (09/24): moderate hepatomegaly. Diffuse increased echogenicity in the liver may reflect hepatic steaosis however, parenchymal infectious/inflammatory etiologies. No cholelithiasis or biliary dilatation * Patient has not sought out treatment; advised strongly that she should followup outpatient and see what further testing she needs for treatment 7.Prophylaxis * Florastor 250mg PO BID * zofran ODT PO Q8hrs PRN for nausea/vomiting * DVT prophylaxis - SCDs, encourage ambulation * no GI prophylaxis indicated at this time * Regular diet * Encourage PO water intake as patient does not have IV access for fluids at this time * patient would benefit from detox except that she is likely actively using drugs * Given the event from overnight, we have spoken with primary nurse, I have spoken with the nursing traffic signal supervisor maintenance, Deyanira, and have advised the resident to have security search patient's belongings, drug screen has been ordered and patient is actively refusing it. Per psych, she is not a candidate and provided the number to [facility] for methadone. Patient has been STRONGLY advised by myself if she continues to heroin she will suffer consequences including but not limited to deadly heart rhythms and , and CANNOT mix her drug with her surrogate method such as methadone because she can from that.
--- NOTE | 2018-09-26 19:05 | PCM.PYCHPN ---
Psychiatric Progress Note - Psychiatric Progress Note Patient seen today, length of contact: 15 min Medication Change: Yes Medical Record Reviewed: Yes
== END 2018-09-26 14:55 | disposition home or self-care (01) | DRG 383 ==
LOC: C.ER 17:05 → C.3T 09-23 02:21
PROVIDERS: ADMIT Hospitalist; ATTEND Hospitalist
PROC: 0H94XZZ Drainage of Neck Skin, External Approach (ICD-10-PCS; principal; 2018-09-23)
DX: L02.11 Cutaneous abscess of neck (principal); I80.9 Phlebitis and thrombophlebitis of unspecified site; F11.23 Opioid dependence with withdrawal; B19.20 Unspecified viral hepatitis C without hepatic coma; F17.210 Nicotine dependence, cigarettes, uncomplicated; F41.9 Anxiety disorder, unspecified; K59.00 Constipation, unspecified